=== PATIENT | female | born 1955 | race African-American/Black ===

== ENCOUNTER 2017-04-04 23:08 | Inpatient (IN) | payer OTHER, MEDICAID ==
[~2017-04-04] VITALS: Ht 152.4 cm; Wt 42.6 kg
[2017-04-04] MEDS ORDERED: SODIUM CHLORIDE 0.9% 1,000 ML IV ONE (23:32)
[2017-04-05] VITALS (53 sets, daily range): BP systolic 82–142; BP diastolic 21–104
[2017-04-05 00:17] LABS: BASOPHILS % 0.3 % (0.0-2.0); EOSINOPHILS % 0.2 % (0.0-5.0); HEMATOCRIT. 33.3 % (36.0-48.0); HEMOGLOBIN. 9.9 g/dL (12.0-16.0); LYMPHOCYTES % 13.7 % (20.0-50.0); MEAN CORPUSCULAR VOLUME 100.8 fL (81.0-99.0); MEAN PLATELET VOLUME 11.3 fl (7.4-10.4); MONOCYTES % 8.6 % (2.0-8.0); NEUTROPHILS % 77.2 % (40.0-76.0); PLATELET 151 x1000/uL (130-400); RED BLOOD CELL COUNT 3.31 mill/uL (4.2-5.4); RED CELL DISTRIBUTION WIDTH 17.2 % (11.6-14.6)
[2017-04-05 00:37] LABS: BETA HYDROXYBUTYRATE 2.5 mMol/L (0.0-0.3)
[2017-04-05] MEDS ORDERED: SODIUM CHLORIDE 0.9% 1,000 ML IV ONE (00:55)
[2017-04-05] MEDS ORDERED: INSULIN REGULAR (DRIP) 100 UNITS in SODIUM CHLORIDE 0.9% 99 ML IV SCH (01:00)
[2017-04-05] MEDS ORDERED: MORPHINE SULFATE 2 MG/ML CPJ (NOT FOR IM USE) IV ONE (03:00)
[2017-04-05] MEDS ORDERED: ONDANSETRON HCL 4MG/2ML VIAL IV ONE (03:00)
[2017-04-05] MEDS ORDERED: INSULIN REGULAR (DRIP) 100 UNITS in SODIUM CHLORIDE 0.9% 100 ML IV SCH (04:00)
[2017-04-05] MEDS ORDERED: DEXTROSE 50% WATER 50ML SYRINGE IV PRN ×3 (04:00→11:45)
[2017-04-05] MEDS ORDERED: HYDROCODONE/ACETAMINOPHEN 5/325MG TABLET PO PRN ×2 (04:15→10:30)
[2017-04-05] MEDS: BLOOD SUGAR DIAGNOSTIC STRIP TEST SCH ×10 (04:37→21:56)
[2017-04-05] MEDS: SODIUM CHLORIDE 0.9% 1,000 ML IV SCH ×3 (04:51→17:35)
[2017-04-05] MEDS ORDERED: METF850T2 PO (07:26)
[2017-04-05] MEDS ORDERED: HYDR10SY11 PO (07:26)
[2017-04-05] MEDS ORDERED: GLIP5TAB12 PO (07:26)
[2017-04-05] MEDS ORDERED: PROP10TA10 PO (07:26)
[2017-04-05] MEDS ORDERED: EMPA25TA PO (07:26)
[2017-04-05] MEDS ORDERED: LORAZEPAM 2MG/ML CPJ IV PRN (10:30)
[2017-04-05] MEDS ORDERED: ENOXAPARIN 40MG/0.4ML SYR SUBCUT SCH (10:30)
[2017-04-05] MEDS ORDERED: MORPHINE SULFATE 2 MG/ML CPJ (NOT FOR IM USE) IV PRN (10:30)
[2017-04-05] MEDS ORDERED: ONDANSETRON HCL 4MG/2ML VIAL IV PRN (10:30)
[2017-04-05] MEDS: THIAMINE HCL 100MG TABLET PO SCH (11:41)
[2017-04-05] MEDS: ASPIRIN 81MG EC TABLET PO SCH (11:41)
[2017-04-05] MEDS: PROPRANOLOL HCL 10MG TABLET PO SCH ×2 (11:41→21:54)
[2017-04-05] MEDS: ENOXAPARIN 30MG/0.3ML SYR SUBCUT SCH (11:42)
[2017-04-05] MEDS: INSULIN LISPRO 100 UNITS/ML SUBCUT SCH ×3 (11:48→21:55)
[2017-04-05 12:45] LABS: BASOPHILS % 0.3 % (0.0-2.0); CHLORIDE 104 mEq/L (98-107); EOSINOPHILS % 0.6 % (0.0-5.0); HEMATOCRIT. 31.1 % (36.0-48.0); HEMOGLOBIN. 10.5 g/dL (12.0-16.0); LYMPHOCYTES % 27.3 % (20.0-50.0); MEAN CORPUSCULAR HEMOGLOBIN 29.9 pg (28.0-32.0); MEAN CORPUSCULAR VOLUME 88.7 fL (81.0-99.0); MEAN PLATELET VOLUME 11.3 fl (7.4-10.4); NEUTROPHILS % 62.8 % (40.0-76.0); PLATELET 161 x1000/uL (130-400); RED CELL DISTRIBUTION WIDTH 15.1 % (11.6-14.6)
[2017-04-05 12:53] LABS: CARBON DIOXIDE 23 mEq/L (21-32); PHOSPHORUS 1.5 mg/dL (2.5-4.9)
[2017-04-05] MEDS: METFORMIN HCL 850MG TABLET PO SCH (17:26)
[2017-04-05] MEDS ORDERED: SODIUM PHOS,M-BASIC-D-BASIC 20 MM in DEXT 5% WATER 243.3333 ML IV NR (21:00)
[2017-04-06] VITALS (35 sets, daily range): BP systolic 90–154; BP diastolic 22–96
[2017-04-06] MEDS: SODIUM CHLORIDE 0.9% 1,000 ML IV SCH ×2 (00:15→06:12)
[2017-04-06] MEDS: BLOOD SUGAR DIAGNOSTIC STRIP TEST SCH ×3 (06:12→16:30)
[2017-04-06] MEDS: INSULIN LISPRO 100 UNITS/ML SUBCUT SCH ×3 (06:12→18:13)
[2017-04-06] MEDS: METFORMIN HCL 850MG TABLET PO SCH ×2 (06:12→18:12)
[2017-04-06] MEDS: THIAMINE HCL 100MG TABLET PO SCH (08:24)
[2017-04-06] MEDS: ASPIRIN 81MG EC TABLET PO SCH (08:24)
[2017-04-06] MEDS: PROPRANOLOL HCL 10MG TABLET PO SCH (08:24)
[2017-04-06] MEDS: ENOXAPARIN 30MG/0.3ML SYR SUBCUT SCH (08:25)
== END 2017-04-06 19:15 | disposition short-term general hospital (02) | DRG 637 ==
LOC: ER 23:08 → MICUSO 04-05 00:58 → EDBEDREQSVC 04-05 01:02 → EDBEDREQTM 04-05 01:02 → EDBEDREQ 04-05 01:02 → ENRESERV 04-05 02:23
PROVIDERS: ADMIT Internal Medicine Nephrology; ATTEND Internal Medicine Nephrology
DX: E11.00 Type 2 diabetes mellitus with hyperosmolarity without nonketotic hyperglycemic-hyperosmolar coma (NKHHC) (principal); E43 Unspecified severe protein-calorie malnutrition; I60.9 Nontraumatic subarachnoid hemorrhage, unspecified; E11.21 Type 2 diabetes mellitus with diabetic nephropathy; N17.9 Acute kidney failure, unspecified; E86.0 Dehydration; E87.1 Hypo-osmolality and hyponatremia; Z68.1 Body mass index [BMI] 19.9 or less, adult; W19.XXXA Unspecified fall, initial encounter; W01.0XXA Fall on same level from slipping, tripping and stumbling without subsequent striking against object, initial encounter; D63.8 Anemia in other chronic diseases classified elsewhere; K70.30 Alcoholic cirrhosis of liver without ascites; F17.200 Nicotine dependence, unspecified, uncomplicated; E87.5 Hyperkalemia; K58.9 Irritable bowel syndrome, unspecified; K21.9 Gastro-esophageal reflux disease without esophagitis; E11.65 Type 2 diabetes mellitus with hyperglycemia; Y93.89 Activity, other specified; Y92.098 Other place in other non-institutional residence as the place of occurrence of the external cause; Y99.8 Other external cause status
CPT/HCPCS: 36415; 70450; 71010; 80048; 80053; 82010; 82962; 83735; 84100; 85025; 93005; 93970; 96361; 96365; 96366; 99291; J1650; J1815; J2405; J3490; J7030; J7050; J7060

== ENCOUNTER 2018-04-10 19:41 | Inpatient (IN) | payer OTHER, MEDICAID ==
[~2018-04-10] VITALS: Ht 165.1 cm; Wt 36.3 kg
[~2018-04-10 19:41] MED LIST: EMPA25TA PO; GLIP5TAB12 PO; HYDR10SY11 PO; METF-415 PO; PROP10TA10 PO
[2018-04-10] MEDS ORDERED: SODIUM CHLORIDE 0.9% 1,000 ML IV ONE (21:00)
[2018-04-10 22:06] LABS: BASOPHILS % 0.3 % (0.0-2.0); EOSINOPHILS % 0.1 % (0.0-5.0); HEMATOCRIT. 30.2 % (36.0-48.0); HEMOGLOBIN. 9.8 g/dL (12.0-16.0); LYMPHOCYTES % 13.5 % (20.0-50.0); MEAN CORPUSCULAR HEMOGLOBIN 30.3 pg (28.0-32.0); MEAN CORPUSCULAR VOLUME 93.8 fL (81.0-99.0); MEAN PLATELET VOLUME 8.6 fl (7.4-10.4); MONOCYTES % 13.2 % (2.0-8.0); NEUTROPHILS % 72.9 % (40.0-76.0); PLATELET 301 x1000/uL (130-400); RED BLOOD CELL COUNT 3.22 mill/uL (4.2-5.4)
[2018-04-10 22:10] LABS: CHLORIDE 106 mEq/L (98-107)
[2018-04-10 22:49] LABS: INR 1.1; PARTIAL THROMBOPLASTIN TIME 30.1 sec (23.4-31.0)
[2018-04-11] VITALS (7 sets, daily range): BP systolic 91–111; BP diastolic 53–71
[2018-04-11 02:56] LABS: BG BASE EXCESS -9.1 mmol/L (-2.0-2.0); BG DEOXYHEMOGLOBIN 4.5 % (0.0-5.0); BG FRACTION INSPIRED OXYGEN 21; BG HCO3 ACT 15.7 mmol/L (22.0-26.0); BG METHEMOGLOBIN 0.2 % (0.0-1.5); BG OXYGEN SATURATION 95.4 % (92.0-98.5); BG OXYHEMOGLOBIN 94.3 % (94.0-97.0); BG PCO2 30.2 mmHg (35.0-45.0); BG PH 7.333 (7.350-7.450); BG PO2 84.2 mmHg (75.0-100.0); BG SAMPLE SITE LEFT BRACHIAL; BG TOTAL HEMOGLOBIN 10.8 g/dL (12.0-18.0); BG VENT MODE ROOM AIR
[2018-04-11] MEDS ORDERED: SODIUM CHLORIDE 0.9% 1,000 ML IV ONE (03:06)
[2018-04-11] MEDS ORDERED: SODIUM CHLORIDE 0.9% 1,000 ML IV NR (05:00)
[2018-04-11] MEDS ORDERED: NPH,100I SQ (06:59)
[2018-04-11] MEDS ORDERED: ASPI-1159 PO (06:59)
[2018-04-11] MEDS ORDERED: INSU500V SQ (06:59)
[2018-04-11] MEDS ORDERED: CLONIDINE 0.1MG TABLET PO PRN (10:45)
[2018-04-11] MEDS ORDERED: IPRATROPIUM/ALBUTEROL 0.5-3(2.5)MG/3ML NEB INH PRN (10:45)
[2018-04-11] MEDS ORDERED: ACETAMINOPHEN 325MG TABLET PO PRN (10:45)
[2018-04-11] MEDS ORDERED: ONDANSETRON HCL 4MG/2ML INJ IV PRN (10:45)
[2018-04-11] MEDS ORDERED: HYDROCODONE/ACETAMINOPHEN 5/325MG TABLET PO PRN (10:45)
[2018-04-11] MEDS ORDERED: NICOTINE 21MG PATCH TD SCH (12:45)
[2018-04-11] MEDS ORDERED: ASPIRIN 81MG TABLET PO SCH (12:45)
[2018-04-11] MEDS ORDERED: DEXTROSE 50% WATER 50ML SYRINGE IV PRN (13:00)
[2018-04-11 13:59] LABS: PHOSPHORUS 4.2 mg/dL (2.5-4.9)
[2018-04-11] MEDS: BLOOD SUGAR DIAGNOSTIC STRIP TEST SCH ×3 (14:42→21:05)
[2018-04-11] MEDS: INSULIN LISPRO 100 UNITS/ML SUBCUT SCH ×3 (14:53→21:20)
[2018-04-11] MEDS: TRAMADOL 50MG TABLET PO PRN ×2 (15:25→21:22)
[2018-04-11] MEDS ORDERED: SODIUM CHLORIDE 0.9% 1,000 ML IV SCH (15:45)
[2018-04-11] MEDS ORDERED: INSULIN GLARGINE UD 100 UNITS/ML SYR SUBCUT SCH (22:00)
[2018-04-12] MEDS ORDERED: METFORMIN HCL 850MG TABLET PO SCH (08:10)
== END 2018-04-11 23:10 | disposition short-term general hospital (02) | DRG 393 ==
LOC: ER 19:41 → 7WST 04-11 02:47 → EDBEDREQTM 04-11 02:54 → EDBEDREQ 04-11 02:54 → EDBEDREQSVC 04-11 02:54 → ENRESERV 04-11 04:34
PROVIDERS: ADMIT Internal Medicine; ATTEND Internal Medicine
DX: K64.9 Unspecified hemorrhoids (principal); N18.6 End stage renal disease; N17.9 Acute kidney failure, unspecified; I12.0 Hypertensive chronic kidney disease with stage 5 chronic kidney disease or end stage renal disease; E87.1 Hypo-osmolality and hyponatremia; E46 Unspecified protein-calorie malnutrition; Z68.1 Body mass index [BMI] 19.9 or less, adult; E11.22 Type 2 diabetes mellitus with diabetic chronic kidney disease; K58.0 Irritable bowel syndrome with diarrhea; J44.9 Chronic obstructive pulmonary disease, unspecified; R56.9 Unspecified convulsions; J84.10 Pulmonary fibrosis, unspecified; I95.9 Hypotension, unspecified; M06.9 Rheumatoid arthritis, unspecified; F17.210 Nicotine dependence, cigarettes, uncomplicated; K21.9 Gastro-esophageal reflux disease without esophagitis; E11.65 Type 2 diabetes mellitus with hyperglycemia; D64.9 Anemia, unspecified; Z79.4 Long term (current) use of insulin; Z91.19 Patient's noncompliance with other medical treatment and regimen; Z88.6 Allergy status to analgesic agent; Z79.84 Long term (current) use of oral hypoglycemic drugs; Z79.899 Other long term (current) drug therapy
CPT/HCPCS: 36415; 36600; 71045; 80048; 80061; 82010; 82375; 82728; 82805; 82962; 83540; 83550; 83735; 84100; 84443; 93005; 93306; 96360; 96361; 99285; J1815; J7030

== ENCOUNTER 2018-04-18 00:09 | Inpatient (IN) | payer OTHER, MEDICAID ==
[2018-04-18] VITALS (76 sets, daily range): BP systolic 74–172; BP diastolic 40–91
[~2018-04-18] VITALS: Ht 152.4 cm; Wt 53.4 kg
[~2018-04-18 00:09] MED LIST changes: +ASPI-1159 PO; -GLIP5TAB12 PO; +INSU500V SQ; +NPH,100I SQ
[2018-04-18] MEDS ORDERED: SODIUM CHLORIDE 0.9% 1,000 ML IV ONE ×4 (00:44→03:30)
[2018-04-18] MEDS ORDERED: FAMOTIDINE 20MG/2ML VIAL IV STA (00:44)
[2018-04-18] MEDS ORDERED: ONDANSETRON HCL 4MG/2ML INJ IV STA (00:44)
[2018-04-18] MEDS ORDERED: MORPHINE SULFATE 4 MG/ML CPJ (NOT FOR IM USE) IV STA (00:44)
[2018-04-18 01:33] LABS: BASOPHILS % 0.2 % (0.0-2.0); EOSINOPHILS % 0.2 % (0.0-5.0); HEMATOCRIT. 31.7 % (36.0-48.0); HEMOGLOBIN. 9.8 g/dL (12.0-16.0); LYMPHOCYTES % 24.9 % (20.0-50.0); MEAN CORPUSCULAR HEMOGLOBIN 29.5 pg (28.0-32.0); MEAN CORPUSCULAR VOLUME 95.2 fL (81.0-99.0); MEAN PLATELET VOLUME 8.5 fl (7.4-10.4); NEUTROPHILS % 70.7 % (40.0-76.0); PLATELET 263 x1000/uL (130-400); RED BLOOD CELL COUNT 3.33 mill/uL (4.2-5.4); RED CELL DISTRIBUTION WIDTH 16.3 % (11.6-14.6)
[2018-04-18 01:39] LABS: CHLORIDE 112 mEq/L (98-107)
[2018-04-18] MEDS ORDERED: MORPHINE SULFATE 4 MG/ML CPJ (NOT FOR IM USE) IV ONE (01:45)
[2018-04-18] MEDS ORDERED: MIDAZOLAM HCL 2 MG/2 ML VIAL IV ONE (01:45)
[2018-04-18] MEDS ORDERED: METRONIDAZOLE 500 MG PREMIX 100 ML IV ONE (02:15)
[2018-04-18] MEDS ORDERED: PIPERACILLIN/TAZ 3.375G PREMIX 50 ML IV ONE (02:15)
[2018-04-18] MEDS ORDERED: CLINDAMYCIN 600 MG in DEXTROSE 5% WATER 50 ML IV ONE (02:15)
[2018-04-18] MEDS ORDERED: DEXTROSE 50% WATER 50ML SYRINGE IV ONE ×2 (02:16→02:30)
[2018-04-18 02:43] LABS: BG BASE EXCESS -18.5 mmol/L (-2.0-2.0); BG CARBOXYHEMOGLOBIN 0.7 % (0.5-1.5); BG FRACTION INSPIRED OXYGEN 28; BG HCO3 ACT 9.5 mmol/L (22.0-26.0); BG METHEMOGLOBIN 0.6 % (0.0-1.5); BG OXYHEMOGLOBIN 96.7 % (94.0-97.0); BG PCO2 30.2 mmHg (35.0-45.0); BG PH 7.114 (7.350-7.450); BG PO2 180.1 mmHg (75.0-100.0); BG SAMPLE SITE LEFT RADIAL; BG TOTAL HEMOGLOBIN 8.4 g/dL (12.0-18.0); BG VENT MODE NASAL CANNULA
[2018-04-18] MEDS ORDERED: PROPOFOL 10MG/ML 100ML 100 ML IV ONE (03:30)
[2018-04-18] MEDS ORDERED: ETOMIDATE 2MG/ML 10ML VIAL IV ONE ×2 (03:30→03:38)
[2018-04-18] MEDS ORDERED: SUCCINYLCHOLINE CHLORIDE 200MG/10ML IV ONE ×2 (03:30→03:38)
[2018-04-18] MEDS ORDERED: IOHEXOL-300 100 ML BOTTLE ONE (03:43)
[2018-04-18] MEDS ORDERED: SODIUM BICARBONATE 150 MEQ in DEXTROSE 5% WATER 1,000 ML IV STA (03:58)
[2018-04-18 04:12] LABS: INR 1.3; PROTHROMBIN TIME 13.3 sec (9.1-11.1)
[2018-04-18] MEDS ORDERED: SODIUM BICARBONATE 8.4% 1 MEQ/ML 50ML SYR IV ONE ×3 (04:15→06:35)
[2018-04-18] MEDS ORDERED: BUPIVACAINE HCL 0.5% (5MG/ML) 50ML ONE (04:27)
[2018-04-18] MEDS ORDERED: SKIN ADHESIVE 0.7 GM EA TOP ONE (04:27)
[2018-04-18] MEDS ORDERED: DOPAMINE 400MG PREMIX 250 ML IV ONE (05:12)
[2018-04-18 05:14] LABS: CLARITY URINE CLOUDY (CLEAR); COLOR URINE DARK YELLOW (YELLOW); KETONES URINE NEGATIVE (NEGATIVE); LEUKOCYTE ESTERASE URINE NEGATIVE (NEGATIVE); NITRITE URINE NEGATIVE (NEGATIVE); OCCULT BLOOD URINE 3+ (NEGATIVE); PROTEIN URINE 1+ (NEGATIVE); SPECIFIC GRAVITY URINE 1.037 (1.005-1.030); UROBILINOGEN URINE 0.2 E.U./dL (0.2-1.0)
[2018-04-18] MEDS ORDERED: DOPAMINE 400MG PREMIX 250 ML IV SCH (05:15)
[2018-04-18] MEDS ORDERED: MIDAZOLAM HCL 2 MG/2 ML VIAL ONE (05:52)
[2018-04-18] MEDS ORDERED: VECURONIUM BROMIDE 10 MG/VIAL IV ONE (05:58)
[2018-04-18] MEDS ORDERED: SODIUM CHLORIDE 0.9% 10ML VIAL ONE (05:58)
[2018-04-18] MEDS ORDERED: DEXAMETHASONE 4MG/ML 1ML VIAL ONE (05:58)
[2018-04-18] MEDS ORDERED: CEFAZOLIN SODIUM 1000MG/VIAL ONE (05:59)
[2018-04-18] MEDS ORDERED: PHENYLEPHRINE HCL 10 MG/ML 1ML (IV VIAL) IV ONE (05:59)
[2018-04-18] MEDS ORDERED: CALCIUM CHLORIDE 1GM/10ML SYR IV ONE (06:35)
[2018-04-18] MEDS ORDERED: SODIUM BICARBONATE 4% (2.4MEQ) 5ML VIAL IV ONE (06:35)
[2018-04-18] MEDS ORDERED: NOREPINEPHRINE 4MG/250ML PMX 250 ML IV ONE (07:00)
[2018-04-18] MEDS ORDERED: ONDANSETRON HCL 4MG/2ML INJ IV PRN (08:30)
[2018-04-18] MEDS ORDERED: ACETAMINOPHEN 650MG SUPP PR PRN (08:30)
[2018-04-18] MEDS ORDERED: NOREPINEPHRINE 4 MG in DEXT 5% WATER 246 ML IV PRN (08:30)
[2018-04-18 08:41] LABS: HEMATOCRIT 37.8 % (36.0-48.0); HEMOGLOBIN 12.3 g/dL (12.0-16.0); MEAN CORPUSCULAR HEMOGLOBIN 29.4 pg (28.0-32.0); MEAN CORPUSCULAR VOLUME 90.2 fL (81.0-99.0); RED BLOOD CELL COUNT 4.19 mill/uL (4.2-5.4)
[2018-04-18] MEDS ORDERED: DOPAMINE 400MG PREMIX 250 ML IV PRN (08:45)
[2018-04-18] MEDS ORDERED: FAMOTIDINE 20MG/2ML VIAL IV SCH (09:00)
[2018-04-18 09:03] LABS: BG BASE EXCESS -5.3 mmol/L (-2.0-2.0); BG CARBOXYHEMOGLOBIN 0.5 % (0.5-1.5); BG DEOXYHEMOGLOBIN 0.9 % (0.0-5.0); BG FRACTION INSPIRED OXYGEN 100; BG HCO3 ACT 21.9 mmol/L (22.0-26.0); BG METHEMOGLOBIN 0.2 % (0.0-1.5); BG OXYGEN SATURATION 99.1 % (92.0-98.5); BG OXYHEMOGLOBIN 98.4 % (94.0-97.0); BG PCO2 49.6 mmHg (35.0-45.0); BG PH 7.262 (7.350-7.450); BG PO2 449.8 mmHg (75.0-100.0); BG SAMPLE SITE A-LINE; BG TIDAL VOLUME(mL) 350 mL; BG TOTAL HEMOGLOBIN 12.6 g/dL (12.0-18.0); BG VENT MODE VENT - A/C; BG VENT RATE 14 set
[2018-04-18 09:25] LABS: PLATELET 125 x1000/uL (130-400)
[2018-04-18 09:36] LABS: BG BASE EXCESS -10.5 mmol/L (-2.0-2.0); BG DEOXYHEMOGLOBIN 2.5 % (0.0-5.0); BG HCO3 ACT 19.1 mmol/L (22.0-26.0); BG METHEMOGLOBIN 0.2 % (0.0-1.5); BG OXYGEN SATURATION 97.5 % (92.0-98.5); BG OXYHEMOGLOBIN 96.3 % (94.0-97.0); BG PCO2 59.1 mmHg (35.0-45.0); BG PH 7.128 (7.350-7.450); BG PO2 114.1 mmHg (75.0-100.0); BG SAMPLE SITE A-LINE; BG TIDAL VOLUME(mL) 400 mL; BG TOTAL HEMOGLOBIN 13.3 g/dL (12.0-18.0); BG VENT MODE VENT - A/C; BG VENT RATE 15 set
[2018-04-18] MEDS ORDERED: PROPOFOL 10MG/ML 100ML 100 ML IV PRN (10:00)
[2018-04-18] MEDS ORDERED: SODIUM BICARBONATE 8.4% 1 MEQ/ML 50ML SYR IV NR (10:00)
[2018-04-18] MEDS: NOREPINEPHRINE 16 MG in DEXT 5% WATER 234 ML IV PRN ×2 (10:08→19:19)
[2018-04-18] MEDS: PIPERACILLIN/TAZ 3.375G PREMIX 50 ML IV SCH ×3 (10:08→22:05)
[2018-04-18] MEDS: PANTOPRAZOLE SODIUM 40 MG/VIAL IV SCH ×2 (10:10→17:50)
[2018-04-18] MEDS: ALBUMIN HUMAN 25GM/100ML (25%) IV SCH ×3 (10:17→22:05)
[2018-04-18] MEDS: DEXT 5%/0.45% NACL KCL 20MEQ/L 1,000 ML IV SCH ×2 (10:19→17:52)
[2018-04-18] MEDS: VASOPRESSIN 10 UNIT in SODIUM CHLORIDE 0.9% 99.5 ML IV PRN ×3 (10:54→20:57)
[2018-04-18] MEDS ORDERED: METRONIDAZOLE 500 MG PREMIX 100 ML IV SCH (12:00)
[2018-04-18 12:27] LABS: HEMATOCRIT 39.1 % (36.0-48.0); HEMOGLOBIN 13.1 g/dL (12.0-16.0)
[2018-04-18 12:28] LABS: BG BASE EXCESS -4.9 mmol/L (-2.0-2.0); BG CARBOXYHEMOGLOBIN 1.5 % (0.5-1.5); BG DEOXYHEMOGLOBIN 4.3 % (0.0-5.0); BG FRACTION INSPIRED OXYGEN 50; BG METHEMOGLOBIN 0.2 % (0.0-1.5); BG OXYGEN SATURATION 95.6 % (92.0-98.5); BG PCO2 42.1 mmHg (35.0-45.0); BG PH 7.316 (7.350-7.450); BG PO2 78.6 mmHg (75.0-100.0); BG SAMPLE SITE A-LINE; BG TIDAL VOLUME(mL) 450 mL; BG TOTAL HEMOGLOBIN 13.2 g/dL (12.0-18.0); BG VENT MODE VENT - A/C; BG VENT RATE 20 set
[2018-04-18 12:57] LABS: *AMPHETAMINES SCREEN URINE NEGATIVE (NEGATIVE); *BENZODIAZEPINES SCREEN URINE PRESUMTIVE POSITIVE (NEGATIVE); *COCAINE SCREEN URINE NEGATIVE (NEGATIVE)
[2018-04-18 12:59] LABS: CANNABINOID URINE SCREEN NEGATIVE (NEGATIVE); METHADONE URINE SCREEN NEGATIVE (NEGATIVE); OPIATES URINE SCREEN PRESUMTIVE POSITIVE (NEGATIVE); PHENCYCLIDINE URINE SCREEN NEGATIVE (NEGATIVE)
[2018-04-18 13:07] LABS: *BARBITURATES SCREEN URINE NEGATIVE (NEGATIVE)
[2018-04-18] MEDS ORDERED: ALBUMIN HUMAN 25GM/100ML (25%) IV SCH (14:00)
[2018-04-18] MEDS ORDERED: CEFAZOLIN 1000MG PREMIX 50 ML IV SCH (14:00)
[2018-04-18] MEDS ORDERED: DEXTROSE 50% WATER 50ML SYRINGE IV PRN (15:00)
[2018-04-18] MEDS ORDERED: VANCOMYCIN 1 G PREMIX 200 ML IV SCH (15:00)
[2018-04-18] MEDS: MORPHINE SULFATE 4 MG/ML CPJ (NOT FOR IM USE) IV PRN (15:54)
[2018-04-18 16:26] LABS: CHLORIDE 106 mEq/L (98-107)
[2018-04-18] MEDS ORDERED: BLOOD SUGAR DIAGNOSTIC STRIP TEST SCH (17:50)
[2018-04-18] MEDS ORDERED: INSULIN LISPRO 100 UNITS/ML SUBCUT SCH (18:20)
[2018-04-18 18:37] LABS: HEMATOCRIT 35.9 % (36.0-48.0); HEMOGLOBIN 12.5 g/dL (12.0-16.0)
[2018-04-18] MEDS ORDERED: SODIUM CHLORIDE 0.9% 1,000 ML IV SCH ×2 (20:30→21:30)
[2018-04-19] VITALS (125 sets, daily range): BP systolic 66–189; BP diastolic 28–91
[2018-04-19] MEDS: MORPHINE SULFATE 4 MG/ML CPJ (NOT FOR IM USE) IV PRN ×4 (00:09→15:52)
[2018-04-19] MEDS: INSULIN LISPRO 100 UNITS/ML SUBCUT SCH ×5 (00:35→23:26)
[2018-04-19 02:05] LABS: HEMATOCRIT 27.9 % (36.0-48.0)
[2018-04-19 02:11] LABS: HEMOGLOBIN 9.5 g/dL (12.0-16.0)
[2018-04-19] MEDS: PIPERACILLIN/TAZ 3.375G PREMIX 50 ML IV SCH (03:51)
[2018-04-19] MEDS: VASOPRESSIN 10 UNIT in SODIUM CHLORIDE 0.9% 99.5 ML IV PRN ×2 (03:52→10:04)
[2018-04-19] MEDS: NOREPINEPHRINE 16 MG in DEXT 5% WATER 234 ML IV PRN ×3 (03:52→20:00)
[2018-04-19] MEDS: DEXT 5%/0.45% NACL KCL 20MEQ/L 1,000 ML IV SCH ×2 (03:53→15:51)
[2018-04-19] MEDS ORDERED: VANCOMYCIN 500 MG PREMIX 100 ML IV SCH (05:00)
[2018-04-19 05:28] LABS: HEMATOCRIT. 28.6 % (36.0-48.0); HEMOGLOBIN. 9.5 g/dL (12.0-16.0); MEAN CORPUSCULAR HEMOGLOBIN 29.9 pg (28.0-32.0); MEAN PLATELET VOLUME 8.9 fl (7.4-10.4); PLATELET 122 x1000/uL (130-400); RED BLOOD CELL COUNT 3.18 mill/uL (4.2-5.4); RED CELL DISTRIBUTION WIDTH 15.7 % (11.6-14.6)
[2018-04-19] MEDS: BLOOD SUGAR DIAGNOSTIC STRIP TEST SCH ×4 (06:00→23:16)
[2018-04-19] MEDS: PANTOPRAZOLE SODIUM 40 MG/VIAL IV SCH ×2 (08:21→19:39)
[2018-04-19] MEDS ORDERED: SODIUM CHLORIDE 0.9% 1,000 ML IV ONE (09:15)
[2018-04-19 09:33] LABS: BG BASE EXCESS -7.3 mmol/L (-2.0-2.0); BG CARBOXYHEMOGLOBIN 0.2 % (0.5-1.5); BG DEOXYHEMOGLOBIN 1.9 % (0.0-5.0); BG FRACTION INSPIRED OXYGEN 40; BG HCO3 ACT 16.9 mmol/L (22.0-26.0); BG METHEMOGLOBIN 0.3 % (0.0-1.5); BG OXYGEN SATURATION 98.1 % (92.0-98.5); BG OXYHEMOGLOBIN 97.6 % (94.0-97.0); BG PCO2 29.5 mmHg (35.0-45.0); BG PH 7.375 (7.350-7.450); BG PO2 129.6 mmHg (75.0-100.0); BG SAMPLE SITE RIGHT RADIAL; BG TIDAL VOLUME(mL) 450 mL; BG TOTAL HEMOGLOBIN 9.7 g/dL (12.0-18.0); BG VENT MODE VENT - A/C; BG VENT RATE 20 set
[2018-04-19] MEDS: PHENYLEPHRINE 20 MG in DEXT 5% WATER 498 ML IV PRN ×2 (10:07→10:20)
[2018-04-19 10:37] LABS: PLATELET ESTIMATE SLIGHTLY DECREASED
[2018-04-19] MEDS: PIPERACILLIN/TAZ 2.25G PREMIX 50 ML IV SCH ×2 (12:09→19:39)
[2018-04-19] MEDS: ALBUMIN HUMAN 12.5GM/50ML (25%) IV SCH ×2 (12:09→19:39)
[2018-04-19 12:38] LABS: HEMATOCRIT 31.1 % (36.0-48.0); HEMOGLOBIN 10.3 g/dL (12.0-16.0)
[2018-04-19] MEDS: PHENYLEPHRINE 40 MG in DEXT 5% WATER 246 ML IV PRN ×2 (13:34→19:59)
[2018-04-19] MEDS ORDERED: ETOMIDATE 2MG/ML 10ML VIAL IV ONE (13:39)
[2018-04-19 14:28] LABS: BG BASE EXCESS -7.5 mmol/L (-2.0-2.0); BG CARBOXYHEMOGLOBIN 0.7 % (0.5-1.5); BG DEOXYHEMOGLOBIN 2.9 % (0.0-5.0); BG FRACTION INSPIRED OXYGEN 40; BG OXYGEN SATURATION 97.1 % (92.0-98.5); BG OXYHEMOGLOBIN 96.4 % (94.0-97.0); BG PCO2 36.6 mmHg (35.0-45.0); BG PO2 98.5 mmHg (75.0-100.0); BG PRESSURE SUPPORT 8; BG SAMPLE SITE A-LINE; BG TOTAL HEMOGLOBIN 10.5 g/dL (12.0-18.0); BG VENT MODE VENT - CPAP
[2018-04-19 17:23] LABS: BG BASE EXCESS -11.8 mmol/L (-2.0-2.0); BG CARBOXYHEMOGLOBIN 0.4 % (0.5-1.5); BG DEOXYHEMOGLOBIN 3.5 % (0.0-5.0); BG FRACTION INSPIRED OXYGEN 98; BG HCO3 ACT 18.6 mmol/L (22.0-26.0); BG METHEMOGLOBIN 0.1 % (0.0-1.5); BG OXYGEN SATURATION 96.5 % (92.0-98.5); BG PCO2 66.9 mmHg (35.0-45.0); BG PH 7.063 (7.350-7.450); BG PO2 109.7 mmHg (75.0-100.0); BG SAMPLE SITE A-LINE; BG TOTAL HEMOGLOBIN 10.6 g/dL (12.0-18.0); BG VENT MODE MASK - AEROSOL
[2018-04-19 18:58] LABS: BG BASE EXCESS -9.7 mmol/L (-2.0-2.0); BG CARBOXYHEMOGLOBIN 0.2 % (0.5-1.5); BG DEOXYHEMOGLOBIN 0.9 % (0.0-5.0); BG FRACTION INSPIRED OXYGEN 100; BG HCO3 ACT 16.8 mmol/L (22.0-26.0); BG METHEMOGLOBIN 0.4 % (0.0-1.5); BG OXYGEN SATURATION 99.1 % (92.0-98.5); BG OXYHEMOGLOBIN 98.5 % (94.0-97.0); BG PCO2 39.3 mmHg (35.0-45.0); BG PO2 348.6 mmHg (75.0-100.0); BG SAMPLE SITE A-LINE; BG TIDAL VOLUME(mL) 450 mL; BG TOTAL HEMOGLOBIN 9.6 g/dL (12.0-18.0); BG VENT MODE VENT - A/C; BG VENT RATE 20 set
[2018-04-19 19:17] LABS: HEMATOCRIT 26.6 % (36.0-48.0)
[2018-04-19] MEDS: VANCOMYCIN 500 MG PREMIX 100 ML IV SCH (19:50)
[2018-04-19] MEDS ORDERED: SODIUM BICARBONATE 8.4% 1 MEQ/ML 50ML SYR IV NR (20:15)
[2018-04-19] MEDS ORDERED: PHENYLEPHRINE 80 MG in DEXT 5% WATER 500 ML IV PRN (22:28)
[2018-04-19] MEDS ORDERED: PHENYLEPHRINE 80 MG in DEXT 5% WATER 492 ML IV PRN ×2 (22:30→23:00)
[2018-04-20] VITALS (105 sets, daily range): BP systolic 63–185; BP diastolic 17–137
[2018-04-20] MEDS: PIPERACILLIN/TAZ 2.25G PREMIX 50 ML IV SCH ×4 (00:22→18:34)
[2018-04-20] MEDS: ALBUMIN HUMAN 12.5GM/50ML (25%) IV SCH (00:23)
[2018-04-20 00:47] LABS: HEMATOCRIT 24.2 % (36.0-48.0); HEMOGLOBIN 8.3 g/dL (12.0-16.0)
[2018-04-20] MEDS: MORPHINE SULFATE 4 MG/ML CPJ (NOT FOR IM USE) IV PRN ×3 (02:05→14:20)
[2018-04-20] MEDS: DEXT 5%/0.45% NACL KCL 20MEQ/L 1,000 ML IV SCH (02:13)
[2018-04-20] MEDS: PHENYLEPHRINE 80 MG in DEXT 5% WATER 492 ML IV PRN ×3 (03:54→23:33)
[2018-04-20] MEDS: NOREPINEPHRINE 16 MG in DEXT 5% WATER 234 ML IV PRN ×2 (04:25→23:34)
[2018-04-20] MEDS: BLOOD SUGAR DIAGNOSTIC STRIP TEST SCH ×3 (06:05→18:27)
[2018-04-20] MEDS: PANTOPRAZOLE SODIUM 40 MG/VIAL IV SCH ×2 (06:10→18:35)
[2018-04-20] MEDS: INSULIN LISPRO 100 UNITS/ML SUBCUT SCH ×3 (06:11→18:35)
[2018-04-20] MEDS: IPRATROPIUM/ALBUTEROL 0.5-3(2.5)MG/3ML NEB INH PRN ×2 (08:19→12:16)
[2018-04-20 08:45] LABS: HEMATOCRIT. 32.8 % (36.0-48.0); HEMOGLOBIN. 11.2 g/dL (12.0-16.0); MEAN CORPUSCULAR HEMOGLOBIN 29.5 pg (28.0-32.0); MEAN CORPUSCULAR VOLUME 86.2 fL (81.0-99.0); MEAN PLATELET VOLUME 9.1 fl (7.4-10.4); PLATELET 89 x1000/uL (130-400)
[2018-04-20 08:55] LABS: BG BASE EXCESS -9.9 mmol/L (-2.0-2.0); BG CARBOXYHEMOGLOBIN 0.8 % (0.5-1.5); BG DEOXYHEMOGLOBIN 3.5 % (0.0-5.0); BG FRACTION INSPIRED OXYGEN 35; BG HCO3 ACT 14.9 mmol/L (22.0-26.0); BG OXYGEN SATURATION 96.5 % (92.0-98.5); BG OXYHEMOGLOBIN 95.7 % (94.0-97.0); BG PCO2 29.5 mmHg (35.0-45.0); BG PH 7.322 (7.350-7.450); BG PO2 87.1 mmHg (75.0-100.0); BG SAMPLE SITE A-LINE; BG TIDAL VOLUME(mL) 450 mL; BG TOTAL HEMOGLOBIN 10.5 g/dL (12.0-18.0); BG VENT MODE VENT - A/C; BG VENT RATE 20 set
[2018-04-20] MEDS ORDERED: FUROSEMIDE 20MG/2ML VIAL IVP NR (09:45)
[2018-04-20] MEDS: LORAZEPAM 2MG/ML CPJ IV PRN (11:06)
[2018-04-20 11:38] LABS: PLATELET ESTIMATE DECREASED
[2018-04-20] MEDS ORDERED: SODIUM BICARBONATE 8.4% 1 MEQ/ML 50ML SYR IV NR (12:15)
[2018-04-20] MEDS ORDERED: ALBUMIN HUMAN 25GM/100ML (25%) IV NR (12:15)
[2018-04-20] MEDS: VANCOMYCIN 500 MG PREMIX 100 ML IV SCH (14:17)
[2018-04-20] MEDS: SODIUM BICARBONATE 150 MEQ in DEXTROSE 5% WATER 1,000 ML IV SCH (14:18)
[2018-04-20] MEDS ORDERED: CALCIUM GLUCONATE 100MG/ML 10ML VIAL IV NR (18:00)
[2018-04-21] VITALS (76 sets, daily range): BP systolic 66–140; BP diastolic 41–87
[2018-04-21] MEDS: INSULIN LISPRO 100 UNITS/ML SUBCUT SCH ×4 (01:00→17:56)
[2018-04-21] MEDS: PIPERACILLIN/TAZ 2.25G PREMIX 50 ML IV SCH ×3 (01:43→12:34)
[2018-04-21] MEDS: SODIUM BICARBONATE 150 MEQ in DEXTROSE 5% WATER 1,000 ML IV SCH (02:37)
[2018-04-21] MEDS: PANTOPRAZOLE SODIUM 40 MG/VIAL IV SCH ×2 (05:25→17:55)
[2018-04-21] MEDS: VANCOMYCIN 500 MG PREMIX 100 ML IV SCH (05:25)
[2018-04-21] MEDS: BLOOD SUGAR DIAGNOSTIC STRIP TEST SCH ×4 (06:00→17:57)
[2018-04-21 06:44] LABS: CHLORIDE 93 mEq/L (98-107)
[2018-04-21 06:47] LABS: HEMATOCRIT. 30.8 % (36.0-48.0); HEMOGLOBIN. 10.8 g/dL (12.0-16.0); MEAN CORPUSCULAR HEMOGLOBIN 29.9 pg (28.0-32.0); MEAN CORPUSCULAR VOLUME 85.2 fL (81.0-99.0); MEAN PLATELET VOLUME 9.8 fl (7.4-10.4); PLATELET 55 x1000/uL (130-400); RED BLOOD CELL COUNT 3.61 mill/uL (4.2-5.4); RED CELL DISTRIBUTION WIDTH 14.7 % (11.6-14.6)
[2018-04-21 06:51] LABS: PHOSPHORUS 3.3 mg/dL (2.5-4.9)
[2018-04-21 07:24] LABS: CREATINE KINASE 137 IU/L (26-192)
[2018-04-21 09:58] LABS: BG BASE EXCESS -8.1 mmol/L (-2.0-2.0); BG CARBOXYHEMOGLOBIN 0.3 % (0.5-1.5); BG DEOXYHEMOGLOBIN 1.9 % (0.0-5.0); BG FRACTION INSPIRED OXYGEN 40; BG METHEMOGLOBIN 0.2 % (0.0-1.5); BG OXYGEN SATURATION 98.1 % (92.0-98.5); BG OXYHEMOGLOBIN 97.6 % (94.0-97.0); BG PCO2 19.2 mmHg (35.0-45.0); BG PO2 140.3 mmHg (75.0-100.0); BG SAMPLE SITE A-LINE; BG TIDAL VOLUME(mL) 450 mL; BG TOTAL HEMOGLOBIN 8.7 g/dL (12.0-18.0); BG VENT MODE VENT - A/C; BG VENT RATE 20 set
[2018-04-21 10:27] LABS: PLATELET ESTIMATE MARKEDLY DECREASED
[2018-04-21] MEDS ORDERED: DEXT 5%/0.45% NACL KCL 20MEQ/L 1,000 ML IV SCH (10:45)
[2018-04-21] MEDS: MAGNESIUM 4 G PREMIX 100 ML IV SCH (10:52)
[2018-04-21] MEDS: DEXT 5%/0.45% NACL 1000ML 1,000 ML IV SCH ×2 (11:03→21:33)
[2018-04-21] MEDS ORDERED: ALBUMIN HUMAN 25GM/100ML (25%) IV NR (12:30)
[2018-04-21] MEDS: MORPHINE SULFATE 4 MG/ML CPJ (NOT FOR IM USE) IV PRN (12:35)
[2018-04-21] MEDS: CEFAZOLIN 1000MG PREMIX 50 ML IV SCH (17:56)
[2018-04-21] MEDS: METRONIDAZOLE 500 MG PREMIX 100 ML IV SCH (21:38)
[2018-04-22] VITALS (96 sets, daily range): BP systolic 76–169; BP diastolic 46–101
[2018-04-22] MEDS: BLOOD SUGAR DIAGNOSTIC STRIP TEST SCH ×4 (00:24→18:04)
[2018-04-22] MEDS: INSULIN LISPRO 100 UNITS/ML SUBCUT SCH ×4 (00:32→18:03)
[2018-04-22] MEDS: PHENYLEPHRINE 80 MG in DEXT 5% WATER 492 ML IV PRN (01:17)
[2018-04-22 05:55] LABS: HEMATOCRIT. 32.1 % (36.0-48.0); HEMOGLOBIN. 11.1 g/dL (12.0-16.0); MEAN CORPUSCULAR HEMOGLOBIN 29.7 pg (28.0-32.0); MEAN CORPUSCULAR VOLUME 85.7 fL (81.0-99.0); MEAN PLATELET VOLUME 11.1 fl (7.4-10.4); RED BLOOD CELL COUNT 3.75 mill/uL (4.2-5.4); RED CELL DISTRIBUTION WIDTH 14.4 % (11.6-14.6)
[2018-04-22] MEDS: PANTOPRAZOLE SODIUM 40 MG/VIAL IV SCH ×2 (06:10→18:02)
[2018-04-22] MEDS: CEFAZOLIN 1000MG PREMIX 50 ML IV SCH ×2 (06:10→20:01)
[2018-04-22] MEDS: METRONIDAZOLE 500 MG PREMIX 100 ML IV SCH ×3 (06:10→21:20)
[2018-04-22 06:11] LABS: PHOSPHORUS 2.8 mg/dL (2.5-4.9)
[2018-04-22] MEDS: NOREPINEPHRINE 16 MG in DEXT 5% WATER 234 ML IV PRN (06:34)
[2018-04-22 06:53] LABS: PLATELET 37 x1000/uL (130-400)
[2018-04-22 07:33] LABS: BG BASE EXCESS -4.6 mmol/L (-2.0-2.0); BG CARBOXYHEMOGLOBIN 0.4 % (0.5-1.5); BG DEOXYHEMOGLOBIN 2.3 % (0.0-5.0); BG HCO3 ACT 19.7 mmol/L (22.0-26.0); BG METHEMOGLOBIN 0.2 % (0.0-1.5); BG OXYGEN SATURATION 97.7 % (92.0-98.5); BG OXYHEMOGLOBIN 97.1 % (94.0-97.0); BG PCO2 33.7 mmHg (35.0-45.0); BG PH 7.385 (7.350-7.450); BG PO2 107.4 mmHg (75.0-100.0); BG SAMPLE SITE RIGHT RADIAL; BG TIDAL VOLUME(mL) 450 mL; BG TOTAL HEMOGLOBIN 11.6 g/dL (12.0-18.0); BG VENT MODE VENT - A/C; BG VENT RATE 16 set
[2018-04-22 07:43] LABS: ATYPICAL LYMPHOCYTES 1; NUCLEATED RED BLOOD CELLS 2 /100 WBC
[2018-04-22 07:44] LABS: PLATELET ESTIMATE MARKEDLY DECREASED
[2018-04-22] MEDS ORDERED: ALBUMIN HUMAN 25GM/100ML (25%) IV SCH (09:30)
[2018-04-22] MEDS ORDERED: PHENYLEPHRINE 80 MG in DEXT 5% WATER 492 ML IV PRN (10:00)
[2018-04-22] MEDS ORDERED: KCL 20MEQ/100ML PREMIX 100 ML IV SCH (10:00)
[2018-04-22] MEDS: MAGNESIUM 4 G PREMIX 100 ML IV SCH (10:25)
[2018-04-22] MEDS: DEXT 5%/0.9% NACL 1,000 ML IV SCH ×2 (10:29→18:02)
[2018-04-22] MEDS: PHENYLEPHRINE 80 MG in SODIUM CHLORIDE 0.9% 492 ML IV PRN ×2 (10:34→19:59)
[2018-04-22 12:18] LABS: BG BASE EXCESS -6.5 mmol/L (-2.0-2.0); BG CARBOXYHEMOGLOBIN 0.8 % (0.5-1.5); BG DEOXYHEMOGLOBIN 5.6 % (0.0-5.0); BG FRACTION INSPIRED OXYGEN 35; BG HCO3 ACT 20.6 mmol/L (22.0-26.0); BG METHEMOGLOBIN 0.1 % (0.0-1.5); BG OXYGEN SATURATION 94.3 % (92.0-98.5); BG OXYHEMOGLOBIN 93.5 % (94.0-97.0); BG PH 7.251 (7.350-7.450); BG PO2 82.5 mmHg (75.0-100.0); BG PRESSURE SUPPORT 8; BG SAMPLE SITE CORD; BG TOTAL HEMOGLOBIN 11.2 g/dL (12.0-18.0); BG VENT MODE VENT - CPAP
[2018-04-22] MEDS ORDERED: LORAZEPAM 2MG/ML CPJ IV PRN (13:45)
[2018-04-22 14:51] LABS: BG BASE EXCESS -6.6 mmol/L (-2.0-2.0); BG CARBOXYHEMOGLOBIN 0.4 % (0.5-1.5); BG DEOXYHEMOGLOBIN 4.3 % (0.0-5.0); BG FRACTION INSPIRED OXYGEN 35; BG METHEMOGLOBIN 0.1 % (0.0-1.5); BG OXYGEN SATURATION 95.7 % (92.0-98.5); BG OXYHEMOGLOBIN 95.2 % (94.0-97.0); BG PCO2 44.2 mmHg (35.0-45.0); BG PH 7.273 (7.350-7.450); BG PO2 86.8 mmHg (75.0-100.0); BG PRESSURE SUPPORT 12; BG SAMPLE SITE A-LINE; BG TIDAL VOLUME(mL) 450 mL; BG TOTAL HEMOGLOBIN 10.8 g/dL (12.0-18.0); BG VENT MODE VENT - SIMV; BG VENT RATE 8 set
[2018-04-22] MEDS ORDERED: NOREPINEPHRINE 16 MG in DEXT 5% WATER 234 ML IV PRN (19:00)
[2018-04-22] MEDS: LORAZEPAM 2MG/ML CPJ IV PRN (21:20)
[2018-04-23] VITALS (73 sets, daily range): BP systolic 51–275; BP diastolic 27–275
[2018-04-23] MEDS: BLOOD SUGAR DIAGNOSTIC STRIP TEST SCH ×5 (00:02→23:11)
[2018-04-23] MEDS: INSULIN LISPRO 100 UNITS/ML SUBCUT SCH ×5 (00:08→23:11)
[2018-04-23] MEDS: DEXT 5%/0.9% NACL 1,000 ML IV SCH ×2 (01:47→09:27)
[2018-04-23] MEDS: PHENYLEPHRINE 80 MG in SODIUM CHLORIDE 0.9% 492 ML IV PRN ×3 (05:24→23:54)
[2018-04-23] MEDS: PANTOPRAZOLE SODIUM 40 MG/VIAL IV SCH ×2 (06:06→18:03)
[2018-04-23] MEDS: METRONIDAZOLE 500 MG PREMIX 100 ML IV SCH (06:06)
[2018-04-23] MEDS: CEFAZOLIN 1000MG PREMIX 50 ML IV SCH (06:53)
[2018-04-23 08:16] LABS: HEMATOCRIT. 34.9 % (36.0-48.0); HEMOGLOBIN. 11.7 g/dL (12.0-16.0); MEAN CORPUSCULAR HEMOGLOBIN 29.6 pg (28.0-32.0); MEAN CORPUSCULAR VOLUME 88.1 fL (81.0-99.0); MEAN PLATELET VOLUME 11.1 fl (7.4-10.4); RED BLOOD CELL COUNT 3.96 mill/uL (4.2-5.4); RED CELL DISTRIBUTION WIDTH 14.9 % (11.6-14.6)
[2018-04-23 08:33] LABS: PLATELET 30 x1000/uL (130-400)
[2018-04-23 08:37] LABS: BG CARBOXYHEMOGLOBIN 0.3 % (0.5-1.5); BG DEOXYHEMOGLOBIN 3.6 % (0.0-5.0); BG FRACTION INSPIRED OXYGEN 35; BG HCO3 ACT 18.2 mmol/L (22.0-26.0); BG METHEMOGLOBIN 0.3 % (0.0-1.5); BG OXYGEN SATURATION 96.4 % (92.0-98.5); BG OXYHEMOGLOBIN 95.8 % (94.0-97.0); BG PCO2 44.4 mmHg (35.0-45.0); BG PO2 91.8 mmHg (75.0-100.0); BG SAMPLE SITE A-LINE; BG TIDAL VOLUME(mL) 450 mL; BG TOTAL HEMOGLOBIN 11.1 g/dL (12.0-18.0); BG VENT MODE VENT - SIMV; BG VENT RATE 8 set
[2018-04-23 09:01] LABS: CHLORIDE 102 mEq/L (98-107)
[2018-04-23 09:07] LABS: PHOSPHORUS 3.1 mg/dL (2.5-4.9)
[2018-04-23 09:16] LABS: BG PRESSURE SUPPORT 12
[2018-04-23] MEDS: IPRATROPIUM/ALBUTEROL 0.5-3(2.5)MG/3ML NEB INH PRN ×2 (10:19→20:39)
[2018-04-23] MEDS ORDERED: SODIUM BICARBONATE 8.4% 1 MEQ/ML 50ML SYR IV NR (10:45)
[2018-04-23 12:01] LABS: NUCLEATED RED BLOOD CELLS 3 /100 WBC; PLATELET ESTIMATE MARKEDLY DECREASED
[2018-04-23 13:34] LABS: BG BASE EXCESS -6.9 mmol/L (-2.0-2.0); BG CARBOXYHEMOGLOBIN 0.4 % (0.5-1.5); BG DEOXYHEMOGLOBIN 3.4 % (0.0-5.0); BG FRACTION INSPIRED OXYGEN 35; BG HCO3 ACT 18.9 mmol/L (22.0-26.0); BG METHEMOGLOBIN 0.1 % (0.0-1.5); BG OXYGEN SATURATION 96.6 % (92.0-98.5); BG OXYHEMOGLOBIN 96.1 % (94.0-97.0); BG PH 7.303 (7.350-7.450); BG PO2 90.7 mmHg (75.0-100.0); BG PRESSURE SUPPORT 16; BG SAMPLE SITE A-LINE; BG TIDAL VOLUME(mL) 450 mL; BG TOTAL HEMOGLOBIN 10.9 g/dL (12.0-18.0); BG VENT MODE VENT - SIMV; BG VENT RATE 10 set
[2018-04-23] MEDS: ALBUMIN HUMAN 25GM/100ML (25%) IV SCH ×2 (15:19→22:26)
[2018-04-23] MEDS: MICAFUNGIN 100 MG in SODIUM CHLORIDE 0.9% 100 ML IV SCH (15:20)
[2018-04-23] MEDS: SODIUM BICARBONATE 75 MEQ in DEXT 5%/0.45% NACL 1000ML 1,000 ML IV SCH ×3 (15:20)
[2018-04-23] MEDS: MEROPENEM 1,000 MG in SODIUM CHLORIDE 0.9% 100 ML IV SCH ×2 (15:21→20:47)
[2018-04-23] MEDS: LORAZEPAM 2MG/ML CPJ IV PRN (23:03)
[2018-04-23] MEDS: NOREPINEPHRINE 16 MG in SODIUM CHLORIDE 0.9% 234 ML IV PRN (23:54)
[2018-04-24] VITALS (104 sets, daily range): BP systolic 81–128; BP diastolic 34–80
[2018-04-24] MEDS: SODIUM BICARBONATE 75 MEQ in DEXT 5%/0.45% NACL 1000ML 1,000 ML IV SCH ×9 (04:50→21:11)
[2018-04-24] MEDS: INSULIN LISPRO 100 UNITS/ML SUBCUT SCH ×3 (05:13→17:09)
[2018-04-24] MEDS: BLOOD SUGAR DIAGNOSTIC STRIP TEST SCH ×4 (05:13→23:53)
[2018-04-24] MEDS: PANTOPRAZOLE SODIUM 40 MG/VIAL IV SCH ×2 (05:18→17:08)
[2018-04-24] MEDS: ALBUMIN HUMAN 25GM/100ML (25%) IV SCH (05:18)
[2018-04-24 05:45] LABS: CHLORIDE 104 mEq/L (98-107); HEMATOCRIT. 28.5 % (36.0-48.0); HEMOGLOBIN. 9.7 g/dL (12.0-16.0); MEAN CORPUSCULAR HEMOGLOBIN 29.7 pg (28.0-32.0); MEAN CORPUSCULAR VOLUME 87.4 fL (81.0-99.0); RED BLOOD CELL COUNT 3.27 mill/uL (4.2-5.4); RED CELL DISTRIBUTION WIDTH 14.8 % (11.6-14.6)
[2018-04-24 06:01] LABS: PHOSPHORUS 3.1 mg/dL (2.5-4.9)
[2018-04-24 06:35] LABS: PLATELET 26 x1000/uL (130-400)
[2018-04-24 07:51] LABS: BG BASE EXCESS -5.1 mmol/L (-2.0-2.0); BG CARBOXYHEMOGLOBIN 1.4 % (0.5-1.5); BG DEOXYHEMOGLOBIN 3.6 % (0.0-5.0); BG HCO3 ACT 20.6 mmol/L (22.0-26.0); BG METHEMOGLOBIN 0.1 % (0.0-1.5); BG OXYGEN SATURATION 96.3 % (92.0-98.5); BG OXYHEMOGLOBIN 94.9 % (94.0-97.0); BG PCO2 40.9 mmHg (35.0-45.0); BG PO2 84.9 mmHg (75.0-100.0); BG SAMPLE SITE RIGHT RADIAL; BG TIDAL VOLUME(mL) 450 mL; BG TOTAL HEMOGLOBIN 9.1 g/dL (12.0-18.0); BG VENT MODE VENT - SIMV; BG VENT RATE 10 set
[2018-04-24] MEDS ORDERED: POTASSIUM CHLORIDE INJ 40 MEQ in DEXT 5% WATER 250 ML IV SCH (09:30)
[2018-04-24 09:36] LABS: NUCLEATED RED BLOOD CELLS 2 /100 WBC
[2018-04-24] MEDS: PHENYLEPHRINE 80 MG in SODIUM CHLORIDE 0.9% 492 ML IV PRN (09:37)
[2018-04-24] MEDS: MEROPENEM 1,000 MG in SODIUM CHLORIDE 0.9% 100 ML IV SCH ×2 (09:37→21:08)
[2018-04-24 09:38] LABS: PLATELET ESTIMATE MARKEDLY DECREASED
[2018-04-24] MEDS: MICAFUNGIN 100 MG in SODIUM CHLORIDE 0.9% 100 ML IV SCH (12:33)
[2018-04-24] MEDS ORDERED: LORAZEPAM 2MG/ML CPJ IV PRN (13:45)
[2018-04-24] MEDS ORDERED: LIDOCAINE HCL/PF 1% 2ML VIAL ONE (15:12)
[2018-04-24] MEDS ORDERED: SUCCINYLCHOLINE CHLORIDE 200MG/10ML IV ONE (15:21)
[2018-04-24] MEDS ORDERED: ETOMIDATE 2MG/ML 10ML VIAL IV ONE (15:21)
[2018-04-25] VITALS (95 sets, daily range): BP systolic 72–140; BP diastolic 46–84
[2018-04-25] MEDS: INSULIN LISPRO 100 UNITS/ML SUBCUT SCH ×4 (00:07→18:00)
[2018-04-25] MEDS: PHENYLEPHRINE 80 MG in SODIUM CHLORIDE 0.9% 492 ML IV PRN ×3 (03:36→20:45)
[2018-04-25] MEDS: BLOOD SUGAR DIAGNOSTIC STRIP TEST SCH ×3 (06:35→18:05)
[2018-04-25] MEDS: PANTOPRAZOLE SODIUM 40 MG/VIAL IV SCH ×2 (06:41→18:05)
[2018-04-25 08:08] LABS: BG BASE EXCESS -3.4 mmol/L (-2.0-2.0); BG CARBOXYHEMOGLOBIN 0.2 % (0.5-1.5); BG DEOXYHEMOGLOBIN 4.6 % (0.0-5.0); BG FRACTION INSPIRED OXYGEN 35; BG HCO3 ACT 21.8 mmol/L (22.0-26.0); BG METHEMOGLOBIN 0.3 % (0.0-1.5); BG OXYGEN SATURATION 95.4 % (92.0-98.5); BG OXYHEMOGLOBIN 94.9 % (94.0-97.0); BG PCO2 39.6 mmHg (35.0-45.0); BG PH 7.358 (7.350-7.450); BG PO2 80.7 mmHg (75.0-100.0); BG PRESSURE SUPPORT 16; BG SAMPLE SITE RIGHT RADIAL; BG TIDAL VOLUME(mL) 450 mL; BG TOTAL HEMOGLOBIN 10.6 g/dL (12.0-18.0); BG VENT MODE VENT - SIMV; BG VENT RATE 10 set
[2018-04-25] MEDS: SODIUM BICARBONATE 75 MEQ in DEXT 5%/0.45% NACL 1000ML 1,000 ML IV SCH ×9 (08:45→21:00)
[2018-04-25 08:54] LABS: HEMATOCRIT. 32.4 % (36.0-48.0); HEMOGLOBIN. 10.8 g/dL (12.0-16.0); MEAN CORPUSCULAR HEMOGLOBIN 29.3 pg (28.0-32.0); MEAN CORPUSCULAR VOLUME 87.8 fL (81.0-99.0); MEAN PLATELET VOLUME 12.4 fl (7.4-10.4); RED BLOOD CELL COUNT 3.69 mill/uL (4.2-5.4); RED CELL DISTRIBUTION WIDTH 15.6 % (11.6-14.6)
[2018-04-25] MEDS: MEROPENEM 1,000 MG in SODIUM CHLORIDE 0.9% 100 ML IV SCH ×2 (09:13→20:15)
[2018-04-25 09:29] LABS: PLATELET 23 x1000/uL (130-400); PLATELET ESTIMATE MARKEDLY DECREASED
[2018-04-25 09:36] LABS: PHOSPHORUS 3.1 mg/dL (2.5-4.9)
[2018-04-25] MEDS: ALBUMIN HUMAN 25GM/100ML (25%) IV SCH ×2 (10:37→18:05)
[2018-04-25] MEDS ORDERED: KCL 10MEQ/50ML PREMIX 50 ML IV NR (12:30)
[2018-04-25] MEDS: MICAFUNGIN 100 MG in SODIUM CHLORIDE 0.9% 100 ML IV SCH (13:43)
[2018-04-25] MEDS ORDERED: TOTAL PARENTERAL NUTRITION 1,100 ML IV SCH (21:00)
[2018-04-26] VITALS (103 sets, daily range): BP systolic 73–114; BP diastolic 47–88
[2018-04-26] MEDS: BLOOD SUGAR DIAGNOSTIC STRIP TEST SCH ×4 (00:33→19:07)
[2018-04-26] MEDS: INSULIN LISPRO 100 UNITS/ML SUBCUT SCH ×4 (00:43→19:09)
[2018-04-26] MEDS: ALBUMIN HUMAN 25GM/100ML (25%) IV SCH (01:45)
[2018-04-26] MEDS: PANTOPRAZOLE SODIUM 40 MG/VIAL IV SCH ×2 (06:42→19:09)
[2018-04-26 07:28] LABS: HEMATOCRIT. 25.6 % (36.0-48.0); HEMOGLOBIN. 8.7 g/dL (12.0-16.0); MEAN CORPUSCULAR HEMOGLOBIN 30.1 pg (28.0-32.0); MEAN CORPUSCULAR VOLUME 88.2 fL (81.0-99.0); MEAN PLATELET VOLUME 9.6 fl (7.4-10.4); RED CELL DISTRIBUTION WIDTH 15.7 % (11.6-14.6)
[2018-04-26 07:54] LABS: CHLORIDE 105 mEq/L (98-107)
[2018-04-26 07:59] LABS: PLATELET 19 x1000/uL (130-400)
[2018-04-26 08:04] LABS: PHOSPHORUS 3.2 mg/dL (2.5-4.9)
[2018-04-26] MEDS ORDERED: INSULIN LISPRO 100 UNITS/ML SUBCUT SCH (08:20)
[2018-04-26] MEDS: IPRATROPIUM/ALBUTEROL 0.5-3(2.5)MG/3ML NEB INH PRN (08:27)
[2018-04-26] MEDS ORDERED: POTASSIUM CHLORIDE INJ 40 MEQ in DEXT 5% WATER 250 ML IV SCH (08:30)
[2018-04-26] MEDS ORDERED: DEXTROSE 50% WATER 50ML SYRINGE IV PRN (08:30)
[2018-04-26 08:37] LABS: BG BASE EXCESS -7.4 mmol/L (-2.0-2.0); BG CARBOXYHEMOGLOBIN 0.4 % (0.5-1.5); BG FRACTION INSPIRED OXYGEN 35; BG HCO3 ACT 21.3 mmol/L (22.0-26.0); BG METHEMOGLOBIN 0.2 % (0.0-1.5); BG OXYHEMOGLOBIN 92.4 % (94.0-97.0); BG PH 7.161 (7.350-7.450); BG PO2 78.4 mmHg (75.0-100.0); BG SAMPLE SITE RIGHT RADIAL; BG TIDAL VOLUME(mL) 450 mL; BG TOTAL HEMOGLOBIN 9.3 g/dL (12.0-18.0); BG VENT MODE VENT - A/C; BG VENT RATE 10 set
[2018-04-26 09:38] LABS: PLATELET ESTIMATE MARKEDLY DECREASED
[2018-04-26 12:29] LABS: BG BASE EXCESS -7.1 mmol/L (-2.0-2.0); BG CARBOXYHEMOGLOBIN 0.7 % (0.5-1.5); BG DEOXYHEMOGLOBIN 8.3 % (0.0-5.0); BG HCO3 ACT 20.5 mmol/L (22.0-26.0); BG METHEMOGLOBIN 0.1 % (0.0-1.5); BG OXYGEN SATURATION 91.6 % (92.0-98.5); BG OXYHEMOGLOBIN 90.9 % (94.0-97.0); BG PCO2 52.4 mmHg (35.0-45.0); BG PH 7.211 (7.350-7.450); BG PO2 67.6 mmHg (75.0-100.0); BG SAMPLE SITE RIGHT RADIAL; BG TIDAL VOLUME(mL) 450 mL; BG TOTAL HEMOGLOBIN 9.1 g/dL (12.0-18.0); BG VENT MODE VENT - A/C; BG VENT RATE 18 set
[2018-04-26] MEDS ORDERED: BLOOD SUGAR DIAGNOSTIC STRIP TEST SCH (12:50)
[2018-04-26] MEDS ORDERED: SODIUM BICARBONATE 8.4% 1 MEQ/ML 50ML SYR IV NR ×2 (13:30→22:15)
[2018-04-26] MEDS: NOREPINEPHRINE 16 MG in SODIUM CHLORIDE 0.9% 234 ML IV PRN (13:42)
[2018-04-26] MEDS: PHENYLEPHRINE 80 MG in SODIUM CHLORIDE 0.9% 492 ML IV PRN ×2 (13:42→21:06)
[2018-04-26] MEDS: MEROPENEM 1,000 MG in SODIUM CHLORIDE 0.9% 100 ML IV SCH ×2 (13:43→21:06)
[2018-04-26] MEDS: MICAFUNGIN 100 MG in SODIUM CHLORIDE 0.9% 100 ML IV SCH (14:02)
[2018-04-26] MEDS: SODIUM BICARBONATE 75 MEQ in DEXT 5%/0.45% NACL 1000ML 1,000 ML IV SCH ×3 (14:28)
[2018-04-26 14:54] LABS: BG BASE EXCESS -6.7 mmol/L (-2.0-2.0); BG CARBOXYHEMOGLOBIN 1.1 % (0.5-1.5); BG FRACTION INSPIRED OXYGEN 45; BG METHEMOGLOBIN 0.2 % (0.0-1.5); BG OXYGEN SATURATION 95.9 % (92.0-98.5); BG OXYHEMOGLOBIN 94.7 % (94.0-97.0); BG PCO2 38.7 mmHg (35.0-45.0); BG PH 7.309 (7.350-7.450); BG PO2 84.5 mmHg (75.0-100.0); BG SAMPLE SITE RIGHT RADIAL; BG TIDAL VOLUME(mL) 450 mL; BG TOTAL HEMOGLOBIN 8.8 g/dL (12.0-18.0); BG VENT MODE VENT - A/C; BG VENT RATE 22 set
[2018-04-26] MEDS ORDERED: SODIUM CHLORIDE 0.9% 500 ML IV ONE (16:15)
[2018-04-26 20:04] LABS: BG BASE EXCESS -4.9 mmol/L (-2.0-2.0); BG CARBOXYHEMOGLOBIN 0.8 % (0.5-1.5); BG DEOXYHEMOGLOBIN 6.1 % (0.0-5.0); BG FRACTION INSPIRED OXYGEN 45; BG HCO3 ACT 21.1 mmol/L (22.0-26.0); BG METHEMOGLOBIN 0.4 % (0.0-1.5); BG OXYGEN SATURATION 93.8 % (92.0-98.5); BG OXYHEMOGLOBIN 92.7 % (94.0-97.0); BG PCO2 42.7 mmHg (35.0-45.0); BG PH 7.311 (7.350-7.450); BG PO2 70.6 mmHg (75.0-100.0); BG SAMPLE SITE RIGHT RADIAL; BG TIDAL VOLUME(mL) 450 mL; BG TOTAL HEMOGLOBIN 9.2 g/dL (12.0-18.0); BG VENT MODE VENT - A/C; BG VENT RATE 22 set
[2018-04-26] MEDS: TOTAL PARENTERAL NUTRITION 1,100 ML IV SCH (21:08)
[2018-04-26 23:16] LABS: BG DEOXYHEMOGLOBIN 5.1 % (0.0-5.0); BG FRACTION INSPIRED OXYGEN 55; BG METHEMOGLOBIN 0.1 % (0.0-1.5); BG OXYGEN SATURATION 94.8 % (92.0-98.5); BG OXYHEMOGLOBIN 93.8 % (94.0-97.0); BG PCO2 30.2 mmHg (35.0-45.0); BG PO2 66.8 mmHg (75.0-100.0); BG SAMPLE SITE RIGHT RADIAL; BG TIDAL VOLUME(mL) 550 mL; BG TOTAL HEMOGLOBIN 9.1 g/dL (12.0-18.0); BG VENT MODE VENT - A/C; BG VENT RATE 22 set
[2018-04-27] VITALS (97 sets, daily range): BP systolic 48–139; BP diastolic 26–106
[2018-04-27] MEDS: BLOOD SUGAR DIAGNOSTIC STRIP TEST SCH ×4 (00:01→17:59)
[2018-04-27] MEDS: INSULIN LISPRO 100 UNITS/ML SUBCUT SCH ×4 (00:19→18:54)
[2018-04-27] MEDS: SODIUM BICARBONATE 75 MEQ in DEXT 5%/0.45% NACL 1000ML 1,000 ML IV SCH ×3 (00:51)
[2018-04-27 01:35] LABS: BG BASE EXCESS -3.6 mmol/L (-2.0-2.0); BG CARBOXYHEMOGLOBIN 0.2 % (0.5-1.5); BG DEOXYHEMOGLOBIN 2.6 % (0.0-5.0); BG FRACTION INSPIRED OXYGEN 65; BG HCO3 ACT 20.3 mmol/L (22.0-26.0); BG METHEMOGLOBIN 0.3 % (0.0-1.5); BG OXYGEN SATURATION 97.4 % (92.0-98.5); BG OXYHEMOGLOBIN 96.9 % (94.0-97.0); BG PCO2 32.3 mmHg (35.0-45.0); BG PH 7.417 (7.350-7.450); BG PO2 109.7 mmHg (75.0-100.0); BG SAMPLE SITE RIGHT RADIAL; BG TIDAL VOLUME(mL) 500 mL; BG TOTAL HEMOGLOBIN 9.1 g/dL (12.0-18.0); BG VENT MODE VENT - A/C; BG VENT RATE 22 set
[2018-04-27 05:40] LABS: HEMATOCRIT. 26.9 % (36.0-48.0); HEMOGLOBIN. 9.1 g/dL (12.0-16.0); MEAN CORPUSCULAR HEMOGLOBIN 29.4 pg (28.0-32.0); MEAN CORPUSCULAR VOLUME 87.2 fL (81.0-99.0); MEAN PLATELET VOLUME 10.5 fl (7.4-10.4); RED BLOOD CELL COUNT 3.09 mill/uL (4.2-5.4); RED CELL DISTRIBUTION WIDTH 15.3 % (11.6-14.6)
[2018-04-27 05:48] LABS: PHOSPHORUS 1.8 mg/dL (2.5-4.9)
[2018-04-27] MEDS: PANTOPRAZOLE SODIUM 40 MG/VIAL IV SCH ×2 (06:10→18:47)
[2018-04-27] MEDS: PHENYLEPHRINE 80 MG in SODIUM CHLORIDE 0.9% 492 ML IV PRN ×3 (06:13→23:45)
[2018-04-27 07:21] LABS: BG BASE EXCESS -4.1 mmol/L (-2.0-2.0); BG CARBOXYHEMOGLOBIN 0.9 % (0.5-1.5); BG DEOXYHEMOGLOBIN 5.1 % (0.0-5.0); BG METHEMOGLOBIN 0.2 % (0.0-1.5); BG OXYGEN SATURATION 94.8 % (92.0-98.5); BG OXYHEMOGLOBIN 93.8 % (94.0-97.0); BG PCO2 32.8 mmHg (35.0-45.0); BG PH 7.403 (7.350-7.450); BG PO2 74.1 mmHg (75.0-100.0); BG SAMPLE SITE RIGHT RADIAL; BG TIDAL VOLUME(mL) 500 mL; BG TOTAL HEMOGLOBIN 8.9 g/dL (12.0-18.0); BG VENT MODE VENT - A/C; BG VENT RATE 22 set
[2018-04-27] MEDS: MEROPENEM 1,000 MG in SODIUM CHLORIDE 0.9% 100 ML IV SCH ×2 (09:00→21:35)
[2018-04-27 09:48] LABS: PLATELET 15 x1000/uL (130-400)
[2018-04-27 09:59] LABS: PLATELET ESTIMATE MARKEDLY DECREASED
[2018-04-27] MEDS ORDERED: TOTAL PARENTERAL NUTRITION 1,100 ML IV SCH (10:45)
[2018-04-27] MEDS ORDERED: SODIUM PHOS,M-BASIC-D-BASIC 15 MM in DEXT 5% WATER 245 ML IV NR (14:00)
[2018-04-27] MEDS: MICAFUNGIN 100 MG in SODIUM CHLORIDE 0.9% 100 ML IV SCH (16:24)
[2018-04-27] MEDS: NOREPINEPHRINE 16 MG in SODIUM CHLORIDE 0.9% 234 ML IV PRN (16:26)
[2018-04-27] MEDS: IPRATROPIUM/ALBUTEROL 0.5-3(2.5)MG/3ML NEB INH PRN (20:35)
[2018-04-27] MEDS: TOTAL PARENTERAL NUTRITION 1,100 ML IV SCH ×2 (21:00→21:41)
[2018-04-28] VITALS (112 sets, daily range): BP systolic 67–134; BP diastolic 22–103
[2018-04-28] MEDS: BLOOD SUGAR DIAGNOSTIC STRIP TEST SCH ×4 (00:30→18:31)
[2018-04-28] MEDS: INSULIN LISPRO 100 UNITS/ML SUBCUT SCH ×4 (00:35→18:36)
[2018-04-28] MEDS: SODIUM BICARBONATE 75 MEQ in DEXT 5%/0.45% NACL 1000ML 1,000 ML IV SCH ×6 (03:01→20:30)
[2018-04-28] MEDS: MORPHINE SULFATE 4 MG/ML CPJ (NOT FOR IM USE) IV PRN ×2 (05:39→18:13)
[2018-04-28 05:51] LABS: BASOPHILS % 0.4 % (0.0-2.0); HEMATOCRIT. 28.1 % (36.0-48.0); HEMOGLOBIN. 9.6 g/dL (12.0-16.0); LYMPHOCYTES % 16.8 % (20.0-50.0); MEAN CORPUSCULAR HEMOGLOBIN 29.9 pg (28.0-32.0); MEAN CORPUSCULAR VOLUME 87.9 fL (81.0-99.0); MEAN PLATELET VOLUME 9.9 fl (7.4-10.4); MONOCYTES % 11.4 % (2.0-8.0); NEUTROPHILS % 70.4 % (40.0-76.0); RED CELL DISTRIBUTION WIDTH 16.1 % (11.6-14.6)
[2018-04-28 05:56] LABS: PLATELET 16 x1000/uL (130-400)
[2018-04-28 06:16] LABS: PHOSPHORUS 2.5 mg/dL (2.5-4.9)
[2018-04-28] MEDS: PANTOPRAZOLE SODIUM 40 MG/VIAL IV SCH ×2 (06:50→18:12)
[2018-04-28] MEDS: PHENYLEPHRINE 80 MG in SODIUM CHLORIDE 0.9% 492 ML IV PRN ×2 (07:22→15:22)
[2018-04-28] MEDS: IPRATROPIUM/ALBUTEROL 0.5-3(2.5)MG/3ML NEB INH PRN ×4 (08:24→20:50)
[2018-04-28 08:41] LABS: BG BASE EXCESS -2.7 mmol/L (-2.0-2.0); BG CARBOXYHEMOGLOBIN 0.7 % (0.5-1.5); BG DEOXYHEMOGLOBIN 2.9 % (0.0-5.0); BG FRACTION INSPIRED OXYGEN 65; BG HCO3 ACT 22.5 mmol/L (22.0-26.0); BG METHEMOGLOBIN 0.1 % (0.0-1.5); BG OXYGEN SATURATION 97.1 % (92.0-98.5); BG OXYHEMOGLOBIN 96.3 % (94.0-97.0); BG PCO2 41.1 mmHg (35.0-45.0); BG PH 7.357 (7.350-7.450); BG PO2 106.8 mmHg (75.0-100.0); BG SAMPLE SITE RIGHT RADIAL; BG TIDAL VOLUME(mL) 500 mL; BG VENT MODE VENT - A/C; BG VENT RATE 22 set
[2018-04-28] MEDS: MEROPENEM 1,000 MG in SODIUM CHLORIDE 0.9% 100 ML IV SCH ×2 (09:22→20:30)
[2018-04-28] MEDS: MICAFUNGIN 100 MG in SODIUM CHLORIDE 0.9% 100 ML IV SCH (13:03)
[2018-04-28] MEDS ORDERED: FUROSEMIDE 20MG/2ML VIAL IVP NR (14:00)
[2018-04-28] MEDS ORDERED: POTASSIUM CHLORIDE INJ 40 MEQ in DEXT 5% WATER 250 ML IV NR (15:00)
[2018-04-28] MEDS: TOTAL PARENTERAL NUTRITION 1,100 ML IV SCH (20:31)
[2018-04-28] MEDS ORDERED: TOTAL PARENTERAL NUTRITION 1,100 ML IV SCH (21:00)
[2018-04-29] VITALS (96 sets, daily range): BP systolic 65–118; BP diastolic 36–85
[2018-04-29] MEDS: BLOOD SUGAR DIAGNOSTIC STRIP TEST SCH ×5 (00:07→23:37)
[2018-04-29] MEDS: INSULIN LISPRO 100 UNITS/ML SUBCUT SCH ×5 (00:12→23:40)
[2018-04-29] MEDS: IPRATROPIUM/ALBUTEROL 0.5-3(2.5)MG/3ML NEB INH PRN ×3 (00:23→09:12)
[2018-04-29] MEDS: PHENYLEPHRINE 80 MG in SODIUM CHLORIDE 0.9% 492 ML IV PRN ×2 (02:20→16:32)
[2018-04-29] MEDS: PANTOPRAZOLE SODIUM 40 MG/VIAL IV SCH ×2 (05:10→17:30)
[2018-04-29 05:47] LABS: HEMATOCRIT. 24.7 % (36.0-48.0); HEMOGLOBIN. 8.5 g/dL (12.0-16.0); MEAN CORPUSCULAR HEMOGLOBIN 29.5 pg (28.0-32.0); MEAN PLATELET VOLUME 9.7 fl (7.4-10.4); RED BLOOD CELL COUNT 2.87 mill/uL (4.2-5.4); RED CELL DISTRIBUTION WIDTH 15.8 % (11.6-14.6)
[2018-04-29 06:07] LABS: PHOSPHORUS 2.9 mg/dL (2.5-4.9)
[2018-04-29] MEDS: MORPHINE SULFATE 4 MG/ML CPJ (NOT FOR IM USE) IV PRN ×3 (06:20→21:01)
[2018-04-29 06:34] LABS: PLATELET 18 x1000/uL (130-400)
[2018-04-29] MEDS: MEROPENEM 1,000 MG in SODIUM CHLORIDE 0.9% 100 ML IV SCH ×2 (08:07→20:09)
[2018-04-29 08:33] LABS: NUCLEATED RED BLOOD CELLS 2 /100 WBC; PLATELET ESTIMATE MARKEDLY DECREASED
[2018-04-29] MEDS ORDERED: FUROSEMIDE 40MG/4ML VIAL IVP NR (08:45)
[2018-04-29] MEDS ORDERED: ALBUMIN HUMAN 25GM/100ML (25%) IV NR (09:00)
[2018-04-29] MEDS ORDERED: MAGNESIUM 2 G PREMIX 50 ML IV NR (10:00)
[2018-04-29 10:03] LABS: BG CARBOXYHEMOGLOBIN 0.6 % (0.5-1.5); BG DEOXYHEMOGLOBIN 3.5 % (0.0-5.0); BG FRACTION INSPIRED OXYGEN 50; BG HCO3 ACT 23.6 mmol/L (22.0-26.0); BG METHEMOGLOBIN 0.3 % (0.0-1.5); BG OXYGEN SATURATION 96.5 % (92.0-98.5); BG OXYHEMOGLOBIN 95.6 % (94.0-97.0); BG PO2 92.3 mmHg (75.0-100.0); BG SAMPLE SITE RIGHT RADIAL; BG TIDAL VOLUME(mL) 500 mL; BG TOTAL HEMOGLOBIN 8.4 g/dL (12.0-18.0); BG VENT MODE VENT - A/C; BG VENT RATE 22 set
[2018-04-29] MEDS: MICAFUNGIN 100 MG in SODIUM CHLORIDE 0.9% 100 ML IV SCH (13:27)
[2018-04-29] MEDS: SODIUM BICARBONATE 75 MEQ in DEXT 5%/0.45% NACL 1000ML 1,000 ML IV SCH ×6 (16:32→22:30)
[2018-04-29] MEDS ORDERED: TOTAL PARENTERAL NUTRITION 1,800 ML IV SCH ×2 (21:00)
[2018-04-30] VITALS (93 sets, daily range): BP systolic 81–145; BP diastolic 36–94
[2018-04-30 05:21] LABS: MEAN CORPUSCULAR HEMOGLOBIN 29.2 pg (28.0-32.0); MEAN CORPUSCULAR VOLUME 87.1 fL (81.0-99.0); MEAN PLATELET VOLUME 9.4 fl (7.4-10.4); RED BLOOD CELL COUNT 2.76 mill/uL (4.2-5.4); RED CELL DISTRIBUTION WIDTH 16.1 % (11.6-14.6)
[2018-04-30 05:37] LABS: PHOSPHORUS 3.7 mg/dL (2.5-4.9)
[2018-04-30] MEDS: MORPHINE SULFATE 4 MG/ML CPJ (NOT FOR IM USE) IV PRN ×2 (05:42→12:32)
[2018-04-30] MEDS: BLOOD SUGAR DIAGNOSTIC STRIP TEST SCH ×3 (05:57→17:58)
[2018-04-30] MEDS: PANTOPRAZOLE SODIUM 40 MG/VIAL IV SCH ×2 (06:00→18:00)
[2018-04-30] MEDS: INSULIN LISPRO 100 UNITS/ML SUBCUT SCH ×3 (06:01→18:03)
[2018-04-30] MEDS: PHENYLEPHRINE 80 MG in SODIUM CHLORIDE 0.9% 492 ML IV PRN ×2 (07:07→23:10)
[2018-04-30 07:43] LABS: BG CARBOXYHEMOGLOBIN 1.6 % (0.5-1.5); BG DEOXYHEMOGLOBIN 9.9 % (0.0-5.0); BG FRACTION INSPIRED OXYGEN 30; BG HCO3 ACT 27.4 mmol/L (22.0-26.0); BG METHEMOGLOBIN 0.3 % (0.0-1.5); BG OXYGEN SATURATION 89.9 % (92.0-98.5); BG OXYHEMOGLOBIN 88.2 % (94.0-97.0); BG PH 7.443 (7.350-7.450); BG PO2 58.2 mmHg (75.0-100.0); BG SAMPLE SITE RIGHT RADIAL; BG TIDAL VOLUME(mL) 400 mL; BG TOTAL HEMOGLOBIN 8.1 g/dL (12.0-18.0); BG VENT MODE VENT - A/C; BG VENT RATE 22 set
[2018-04-30] MEDS ORDERED: DOPAMINE 800MG PREMIX 250 ML IV PRN (07:45)
[2018-04-30] MEDS: MEROPENEM 1,000 MG in SODIUM CHLORIDE 0.9% 100 ML IV SCH ×2 (08:21→20:24)
[2018-04-30 09:55] LABS: NUCLEATED RED BLOOD CELLS 6 /100 WBC; PLATELET ESTIMATE MARKEDLY DECREASED
[2018-04-30 09:57] LABS: PLATELET 19 x1000/uL (130-400)
[2018-04-30] MEDS: IPRATROPIUM/ALBUTEROL 0.5-3(2.5)MG/3ML NEB INH PRN (11:52)
[2018-04-30] MEDS: MICAFUNGIN 100 MG in SODIUM CHLORIDE 0.9% 100 ML IV SCH (12:47)
[2018-04-30] MEDS: SODIUM BICARBONATE 75 MEQ in DEXT 5%/0.45% NACL 1000ML 1,000 ML IV SCH ×3 (14:51)
[2018-04-30] MEDS ORDERED: MICAFUNGIN 100 MG in SODIUM CHLORIDE 0.9% 100 ML IV SCH (16:00)
[2018-04-30] MEDS: TOTAL PARENTERAL NUTRITION 1,400 ML IV SCH (20:23)
[2018-05-01] VITALS (81 sets, daily range): BP systolic 79–119; BP diastolic 36–70
[2018-05-01] MEDS: BLOOD SUGAR DIAGNOSTIC STRIP TEST SCH ×4 (00:54→17:21)
[2018-05-01] MEDS: INSULIN LISPRO 100 UNITS/ML SUBCUT SCH ×4 (00:59→17:28)
[2018-05-01] MEDS: MORPHINE SULFATE 4 MG/ML CPJ (NOT FOR IM USE) IV PRN ×2 (03:32→11:01)
[2018-05-01] MEDS: PANTOPRAZOLE SODIUM 40 MG/VIAL IV SCH ×2 (06:09→17:28)
[2018-05-01 08:05] LABS: BG BASE EXCESS 3.6 mmol/L (-2.0-2.0); BG CARBOXYHEMOGLOBIN 1.3 % (0.5-1.5); BG DEOXYHEMOGLOBIN 4.8 % (0.0-5.0); BG FRACTION INSPIRED OXYGEN 40; BG HCO3 ACT 27.8 mmol/L (22.0-26.0); BG METHEMOGLOBIN 0.2 % (0.0-1.5); BG OXYGEN SATURATION 95.1 % (92.0-98.5); BG OXYHEMOGLOBIN 93.7 % (94.0-97.0); BG PCO2 40.5 mmHg (35.0-45.0); BG PH 7.454 (7.350-7.450); BG SAMPLE SITE RIGHT RADIAL; BG TIDAL VOLUME(mL) 500 mL; BG VENT MODE VENT - A/C; BG VENT RATE 22 set
[2018-05-01] MEDS: MEROPENEM 1,000 MG in SODIUM CHLORIDE 0.9% 100 ML IV SCH ×2 (09:21→21:12)
[2018-05-01 11:42] LABS: BASOPHILS % 0.5 % (0.0-2.0); EOSINOPHILS % 0.5 % (0.0-5.0); HEMATOCRIT. 25.1 % (36.0-48.0); HEMOGLOBIN. 8.5 g/dL (12.0-16.0); LYMPHOCYTES % 12.6 % (20.0-50.0); MEAN CORPUSCULAR HEMOGLOBIN 29.5 pg (28.0-32.0); MEAN CORPUSCULAR VOLUME 86.8 fL (81.0-99.0); MEAN PLATELET VOLUME 10.6 fl (7.4-10.4); MONOCYTES % 7.9 % (2.0-8.0); NEUTROPHILS % 78.5 % (40.0-76.0); RED BLOOD CELL COUNT 2.89 mill/uL (4.2-5.4); RED CELL DISTRIBUTION WIDTH 16.4 % (11.6-14.6)
[2018-05-01 11:56] LABS: PHOSPHORUS 3.9 mg/dL (2.5-4.9)
[2018-05-01 11:59] LABS: PLATELET 15 x1000/uL (130-400)
[2018-05-01 12:02] LABS: HDL CHOLESTEROL 9 mg/dL (40-59)
[2018-05-01 12:07] LABS: T4 FREE 0.73 ng/dL (0.76-1.46)
[2018-05-01] MEDS ORDERED: LORAZEPAM 2MG/ML CPJ IV PRN (12:15)
[2018-05-01] MEDS: MICAFUNGIN 100 MG in SODIUM CHLORIDE 0.9% 100 ML IV SCH (13:32)
[2018-05-01 14:02] LABS: LDL CHOLESTEROL 16 mg/dL (5-100)
[2018-05-01] MEDS: MORPHINE SULFATE 10 MG/ML CPJ IV PRN ×2 (17:42→21:47)
[2018-05-01] MEDS: PHENYLEPHRINE 80 MG in SODIUM CHLORIDE 0.9% 492 ML IV PRN (17:43)
[2018-05-01] MEDS ORDERED: TOTAL PARENTERAL NUTRITION 1,400 ML IV SCH (21:00)
[2018-05-01] MEDS: TOTAL PARENTERAL NUTRITION 1,400 ML IV SCH (21:00)
[2018-05-02] VITALS (97 sets, daily range): BP systolic 75–125; BP diastolic 34–91
[2018-05-02] MEDS: INSULIN LISPRO 100 UNITS/ML SUBCUT SCH ×4 (00:24→19:57)
[2018-05-02] MEDS: BLOOD SUGAR DIAGNOSTIC STRIP TEST SCH ×4 (00:24→19:30)
[2018-05-02] MEDS: MORPHINE SULFATE 10 MG/ML CPJ IV PRN ×3 (02:19→17:31)
[2018-05-02 03:56] LABS: HEMATOCRIT 27.8 % (36.0-48.0); HEMOGLOBIN 9.2 g/dL (12.0-16.0)
[2018-05-02 04:11] LABS: CREATINE KINASE MB FRACTION 2.5 ng/mL (0.5-3.6)
[2018-05-02 04:13] LABS: INR 1.6; PROTHROMBIN TIME 16.2 sec (9.1-11.1)
[2018-05-02] MEDS: PANTOPRAZOLE SODIUM 40 MG/VIAL IV SCH ×2 (06:42→19:56)
[2018-05-02 07:58] LABS: BG BASE EXCESS 4.8 mmol/L (-2.0-2.0); BG CARBOXYHEMOGLOBIN 1.4 % (0.5-1.5); BG FRACTION INSPIRED OXYGEN 40; BG HCO3 ACT 29.3 mmol/L (22.0-26.0); BG METHEMOGLOBIN 0.2 % (0.0-1.5); BG OXYGEN SATURATION 92.9 % (92.0-98.5); BG OXYHEMOGLOBIN 91.4 % (94.0-97.0); BG PCO2 43.1 mmHg (35.0-45.0); BG PO2 67.5 mmHg (75.0-100.0); BG SAMPLE SITE LEFT RADIAL; BG TIDAL VOLUME(mL) 500 mL; BG TOTAL HEMOGLOBIN 8.2 g/dL (12.0-18.0); BG VENT MODE VENT - A/C; BG VENT RATE 22 set
[2018-05-02] MEDS: MEROPENEM 1,000 MG in SODIUM CHLORIDE 0.9% 100 ML IV SCH ×2 (09:55→21:04)
[2018-05-02 10:33] LABS: HEMATOCRIT. 23.1 % (36.0-48.0); HEMOGLOBIN. 7.6 g/dL (12.0-16.0); MEAN CORPUSCULAR HEMOGLOBIN 29.4 pg (28.0-32.0); MEAN PLATELET VOLUME 9.4 fl (7.4-10.4); RED BLOOD CELL COUNT 2.59 mill/uL (4.2-5.4); RED CELL DISTRIBUTION WIDTH 16.5 % (11.6-14.6)
[2018-05-02 10:35] LABS: PLATELET 40 x1000/uL (130-400)
[2018-05-02] MEDS: PHENYLEPHRINE 80 MG in SODIUM CHLORIDE 0.9% 492 ML IV PRN (11:00)
[2018-05-02 13:05] LABS: NUCLEATED RED BLOOD CELLS 2 /100 WBC; PLATELET ESTIMATE MARKEDLY DECREASED
[2018-05-02] MEDS: MICAFUNGIN 100 MG in SODIUM CHLORIDE 0.9% 100 ML IV SCH (13:18)
[2018-05-02 20:44] LABS: HEPATITIS B SURFACE ANTIGEN NEGATIVE
[2018-05-02] MEDS ORDERED: TOTAL PARENTERAL NUTRITION 1,300 ML IV SCH (21:00)
[2018-05-02 21:13] LABS: HEPATITIS A AB IGM NEGATIVE (NEGATIVE)
[2018-05-03] VITALS (94 sets, daily range): BP systolic 86–140; BP diastolic 33–86
[2018-05-03] MEDS: BLOOD SUGAR DIAGNOSTIC STRIP TEST SCH ×5 (00:02→23:03)
[2018-05-03] MEDS: INSULIN LISPRO 100 UNITS/ML SUBCUT SCH ×5 (00:06→23:10)
[2018-05-03] MEDS: MORPHINE SULFATE 10 MG/ML CPJ IV PRN ×5 (01:08→23:09)
[2018-05-03] MEDS: PHENYLEPHRINE 80 MG in SODIUM CHLORIDE 0.9% 492 ML IV PRN ×2 (02:21→18:40)
[2018-05-03] MEDS: PANTOPRAZOLE SODIUM 40 MG/VIAL IV SCH ×2 (05:23→17:16)
[2018-05-03 06:19] LABS: HEMATOCRIT. 36.2 % (36.0-48.0); HEMOGLOBIN. 12.3 g/dL (12.0-16.0); MEAN CORPUSCULAR HEMOGLOBIN 29.8 pg (28.0-32.0); MEAN CORPUSCULAR VOLUME 87.6 fL (81.0-99.0); MEAN PLATELET VOLUME 11.1 fl (7.4-10.4); RED BLOOD CELL COUNT 4.13 mill/uL (4.2-5.4); RED CELL DISTRIBUTION WIDTH 15.4 % (11.6-14.6)
[2018-05-03 06:32] LABS: PHOSPHORUS 4.9 mg/dL (2.5-4.9)
[2018-05-03 07:22] LABS: PLATELET 31 x1000/uL (130-400)
[2018-05-03] MEDS: IPRATROPIUM/ALBUTEROL 0.5-3(2.5)MG/3ML NEB INH PRN ×2 (08:07→15:50)
[2018-05-03 09:41] LABS: BG BASE EXCESS 3.2 mmol/L (-2.0-2.0); BG CARBOXYHEMOGLOBIN 1.4 % (0.5-1.5); BG DEOXYHEMOGLOBIN 4.8 % (0.0-5.0); BG FRACTION INSPIRED OXYGEN 40; BG HCO3 ACT 27.5 mmol/L (22.0-26.0); BG METHEMOGLOBIN 0.1 % (0.0-1.5); BG OXYGEN SATURATION 95.1 % (92.0-98.5); BG OXYHEMOGLOBIN 93.7 % (94.0-97.0); BG PCO2 40.6 mmHg (35.0-45.0); BG PH 7.448 (7.350-7.450); BG PO2 75.6 mmHg (75.0-100.0); BG SAMPLE SITE RIGHT RADIAL; BG TIDAL VOLUME(mL) 500 mL; BG TOTAL HEMOGLOBIN 11.9 g/dL (12.0-18.0); BG VENT MODE VENT - A/C; BG VENT RATE 22 set
[2018-05-03] MEDS: MEROPENEM 1,000 MG in SODIUM CHLORIDE 0.9% 100 ML IV SCH ×2 (10:02→21:27)
[2018-05-03 10:34] LABS: NUCLEATED RED BLOOD CELLS 9 /100 WBC
[2018-05-03 10:36] LABS: PLATELET ESTIMATE MARKEDLY DECREASED
[2018-05-03] MEDS: MICAFUNGIN 100 MG in SODIUM CHLORIDE 0.9% 100 ML IV SCH (12:10)
[2018-05-03] MEDS ORDERED: TOTAL PARENTERAL NUTRITION 1,300 ML IV SCH (21:00)
[2018-05-04] VITALS (98 sets, daily range): BP systolic 84–131; BP diastolic 42–88
[2018-05-04] MEDS: BLOOD SUGAR DIAGNOSTIC STRIP TEST SCH ×4 (06:48→23:49)
[2018-05-04] MEDS: PANTOPRAZOLE SODIUM 40 MG/VIAL IV SCH ×2 (06:50→18:03)
[2018-05-04] MEDS: INSULIN LISPRO 100 UNITS/ML SUBCUT SCH ×3 (07:01→18:04)
[2018-05-04] MEDS: IPRATROPIUM/ALBUTEROL 0.5-3(2.5)MG/3ML NEB INH PRN ×2 (07:41→15:45)
[2018-05-04 08:55] LABS: BG BASE EXCESS -0.6 mmol/L (-2.0-2.0); BG CARBOXYHEMOGLOBIN 0.3 % (0.5-1.5); BG DEOXYHEMOGLOBIN 5.5 % (0.0-5.0); BG FRACTION INSPIRED OXYGEN 40; BG HCO3 ACT 23.6 mmol/L (22.0-26.0); BG METHEMOGLOBIN 0.2 % (0.0-1.5); BG OXYGEN SATURATION 94.5 % (92.0-98.5); BG PCO2 37.1 mmHg (35.0-45.0); BG PH 7.421 (7.350-7.450); BG PO2 76.5 mmHg (75.0-100.0); BG SAMPLE SITE RIGHT BRACHIAL; BG TIDAL VOLUME(mL) 500 mL; BG TOTAL HEMOGLOBIN 11.8 g/dL (12.0-18.0); BG VENT MODE VENT - A/C; BG VENT RATE 22 set
[2018-05-04] MEDS: MEROPENEM 1,000 MG in SODIUM CHLORIDE 0.9% 100 ML IV SCH (08:56)
[2018-05-04] MEDS: MORPHINE SULFATE 10 MG/ML CPJ IV PRN (08:57)
[2018-05-04 09:26] LABS: HEMATOCRIT. 34.4 % (36.0-48.0); HEMOGLOBIN. 11.6 g/dL (12.0-16.0); MEAN CORPUSCULAR HEMOGLOBIN 29.4 pg (28.0-32.0); MEAN CORPUSCULAR VOLUME 87.2 fL (81.0-99.0); MEAN PLATELET VOLUME 10.5 fl (7.4-10.4); RED BLOOD CELL COUNT 3.94 mill/uL (4.2-5.4); RED CELL DISTRIBUTION WIDTH 15.6 % (11.6-14.6)
[2018-05-04 09:45] LABS: PLATELET 20 x1000/uL (130-400)
[2018-05-04 10:43] LABS: NUCLEATED RED BLOOD CELLS 5 /100 WBC
[2018-05-04 10:44] LABS: PLATELET ESTIMATE MARKEDLY DECREASED
[2018-05-04] MEDS: PHENYLEPHRINE 80 MG in SODIUM CHLORIDE 0.9% 492 ML IV PRN (11:05)
[2018-05-04] MEDS ORDERED: FUROSEMIDE 20MG/2ML VIAL IVP SCH (12:30)
[2018-05-04] MEDS: METRONIDAZOLE 500 MG PREMIX 100 ML IV SCH (15:58)
[2018-05-04] MEDS: AZTREONAM 500 MG in DEXTROSE 5% WATER 50 ML IV SCH ×2 (15:58→21:58)
[2018-05-04] MEDS: FLUCONAZOLE 400MG/200ML BAG 200 ML IV SCH (15:58)
[2018-05-04] MEDS ORDERED: LORAZEPAM 2MG/ML CPJ IV PRN (20:15)
[2018-05-04] MEDS ORDERED: TOTAL PARENTERAL NUTRITION 1,300 ML IV SCH (21:00)
[2018-05-05] VITALS (93 sets, daily range): BP systolic 83–131; BP diastolic 50–100
[2018-05-05] MEDS: INSULIN LISPRO 100 UNITS/ML SUBCUT SCH ×3 (00:07→15:35)
[2018-05-05] MEDS: PANTOPRAZOLE SODIUM 40 MG/VIAL IV SCH ×2 (05:56→17:31)
[2018-05-05] MEDS: AZTREONAM 500 MG in DEXTROSE 5% WATER 50 ML IV SCH ×3 (05:56→22:38)
[2018-05-05] MEDS: BLOOD SUGAR DIAGNOSTIC STRIP TEST SCH ×3 (06:00→19:30)
[2018-05-05 06:12] LABS: BASOPHILS % 0.6 % (0.0-2.0); EOSINOPHILS % 1.2 % (0.0-5.0); HEMATOCRIT. 36.3 % (36.0-48.0); HEMOGLOBIN. 12.1 g/dL (12.0-16.0); LYMPHOCYTES % 12.8 % (20.0-50.0); MEAN CORPUSCULAR HEMOGLOBIN 29.3 pg (28.0-32.0); MEAN CORPUSCULAR VOLUME 88.1 fL (81.0-99.0); MONOCYTES % 13.2 % (2.0-8.0); NEUTROPHILS % 72.2 % (40.0-76.0); RED BLOOD CELL COUNT 4.12 mill/uL (4.2-5.4); RED CELL DISTRIBUTION WIDTH 15.9 % (11.6-14.6)
[2018-05-05 06:35] LABS: PHOSPHORUS 5.3 mg/dL (2.5-4.9)
[2018-05-05] MEDS: METRONIDAZOLE 500 MG PREMIX 100 ML IV SCH ×2 (06:51→16:46)
[2018-05-05 07:00] LABS: PLATELET 17 x1000/uL (130-400)
[2018-05-05 07:03] LABS: MEAN PLATELET VOLUME 10.4 fl (7.4-10.4)
[2018-05-05 08:17] LABS: BG BASE EXCESS 0.5 mmol/L (-2.0-2.0); BG CARBOXYHEMOGLOBIN 0.8 % (0.5-1.5); BG DEOXYHEMOGLOBIN 4.2 % (0.0-5.0); BG FRACTION INSPIRED OXYGEN 40; BG HCO3 ACT 24.6 mmol/L (22.0-26.0); BG METHEMOGLOBIN 0.1 % (0.0-1.5); BG OXYGEN SATURATION 95.8 % (92.0-98.5); BG OXYHEMOGLOBIN 94.9 % (94.0-97.0); BG PCO2 37.9 mmHg (35.0-45.0); BG PH 7.431 (7.350-7.450); BG SAMPLE SITE LEFT RADIAL; BG TIDAL VOLUME(mL) 500 mL; BG TOTAL HEMOGLOBIN 11.7 g/dL (12.0-18.0); BG VENT MODE VENT - A/C; BG VENT RATE 22 set
[2018-05-05] MEDS: IPRATROPIUM/ALBUTEROL 0.5-3(2.5)MG/3ML NEB INH PRN ×2 (08:39→20:39)
[2018-05-05] MEDS: PHENYLEPHRINE 80 MG in SODIUM CHLORIDE 0.9% 492 ML IV PRN (09:16)
[2018-05-05] MEDS: MORPHINE SULFATE 10 MG/ML CPJ IV PRN ×3 (09:19→22:04)
[2018-05-05] MEDS ORDERED: CHLORHEXIDINE GLUCONATE 4% EXTERNAL USE TOP SCH (12:00)
[2018-05-05] MEDS: SILVER SULFADIAZINE 1% CREAM 50GM TOP SCH ×2 (15:30→22:07)
[2018-05-05] MEDS: FLUCONAZOLE 400MG/200ML BAG 200 ML IV SCH (19:49)
[2018-05-05] MEDS ORDERED: TOTAL PARENTERAL NUTRITION 1,300 ML IV SCH (21:00)
== END 2018-05-05 23:30 | disposition short-term general hospital (02) | DRG 853 ==
LOC: ER 00:09 → CVICU 03:58 → ENRESERV 06:38
PROVIDERS: ADMIT Internal Medicine; ATTEND Internal Medicine
PROC: 0DQ60ZZ Repair Stomach, Open Approach (ICD-10-PCS; 2018-04-18)
PROC: 0BH17EZ Insertion of Endotracheal Airway into Trachea, Via Natural or Artificial Opening (ICD-10-PCS; 2018-04-18)
PROC: 5A1955Z Respiratory Ventilation, Greater than 96 Consecutive Hours (ICD-10-PCS; principal; 2018-04-18 05:15)
PROC: 30233N1 Transfusion of Nonautologous Red Blood Cells into Peripheral Vein, Percutaneous Approach (ICD-10-PCS; 2018-04-20)
PROC: 30233R1 Transfusion of Nonautologous Platelets into Peripheral Vein, Percutaneous Approach (ICD-10-PCS; 2018-05-02)
DX: A41.9 Sepsis, unspecified organism (principal); E43 Unspecified severe protein-calorie malnutrition; K27.5 Chronic or unspecified peptic ulcer, site unspecified, with perforation; R65.21 Severe sepsis with septic shock; K63.1 Perforation of intestine (nontraumatic); K65.0 Generalized (acute) peritonitis; K65.2 Spontaneous bacterial peritonitis; J96.21 Acute and chronic respiratory failure with hypoxia; N17.0 Acute kidney failure with tubular necrosis; D62 Acute posthemorrhagic anemia; B37.89 Other sites of candidiasis; D68.9 Coagulation defect, unspecified; E87.1 Hypo-osmolality and hyponatremia; K86.1 Other chronic pancreatitis; E87.0 Hyperosmolality and hypernatremia; K56.7 Ileus, unspecified; E11.52 Type 2 diabetes mellitus with diabetic peripheral angiopathy with gangrene; I82.411 Acute embolism and thrombosis of right femoral vein; D69.6 Thrombocytopenia, unspecified; E11.65 Type 2 diabetes mellitus with hyperglycemia; E78.5 Hyperlipidemia, unspecified; I45.81 Long QT syndrome; F10.10 Alcohol abuse, uncomplicated; K59.00 Constipation, unspecified; J44.9 Chronic obstructive pulmonary disease, unspecified; K66.8 Other specified disorders of peritoneum; K70.31 Alcoholic cirrhosis of liver with ascites; M20.40 Other hammer toe(s) (acquired), unspecified foot; E83.39 Other disorders of phosphorus metabolism; E83.42 Hypomagnesemia; S90.414A Abrasion, right lesser toe(s), initial encounter; N20.0 Calculus of kidney; J45.909 Unspecified asthma, uncomplicated; L89.150 Pressure ulcer of sacral region, unstageable; Z66 Do not resuscitate; Z78.1 Physical restraint status; Z79.4 Long term (current) use of insulin; Z82.49 Family history of ischemic heart disease and other diseases of the circulatory system; Z86.718 Personal history of other venous thrombosis and embolism; Z83.3 Family history of diabetes mellitus; Z87.11 Personal history of peptic ulcer disease; Z88.5 Allergy status to narcotic agent; Z88.6 Allergy status to analgesic agent; X58.XXXA Exposure to other specified factors, initial encounter; Y93.89 Activity, other specified; Y92.89 Other specified places as the place of occurrence of the external cause; Y99.8 Other external cause status; Z68.23 Body mass index [BMI] 23.0-23.9, adult
CPT/HCPCS: 36415; 36430; 36600; 71045; 74177; 76770; 78580; 80048; 80061; 80202; 80305; 82330; 82375; 82550; 82553; 82805; 82962; 83036; 83605; 83735; 83880; 84100; 84134; 84145; 84439; 84443; 84478; 84484; 85014; 85018; 85027; 85049; 85362; 85379; 85384; 86022; 86705; 86709; 86803; 86850; 86900; 86920; 86945; 87070; 87075; 87077; 87106; 87186; 87340; 93005; 93922; 93970; 94002; 94003; 94640; 96361; 96374; 96375; 99285; A4216; A6261; C1725; C9113; J0330; J0610; J0690; J1100; J1265; J1450; J1815; J1940; J2060; J2185; J2248; J2250; J2270; J2370; J2405; J2543; J2704; J3370; J3475; J3480; J3490; J7030; J7040; J7042; J7050; J7060; J7070; J7620; P9016; P9034; P9047; Q9967; A4315